=== PATIENT | male | born 1930 | race Caucasian/White ===

== ENCOUNTER 2016-10-17 13:09 | Emergency (ER) | payer MEDICARE, BC ==
[2016-10-17 13:45] LABS: Urine Bilirubin Negative (NEGATIVE); Urine Blood Negative /ul (NEGATIVE); Urine Ketone Negative (NEGATIVE); Urine Nitrite Negative (NEGATIVE); Urine Protein Negative (NEGATIVE); Urine Urobilinogen Normal (NORMAL)
[2016-10-17 14:02] LABS: Urine Appearance Clear; Urine Bacteria None Seen; Urine Color Yellow; Urine RBC None Seen /hpf (0-5); Urine WBC None Seen /hpf (0-5)
[2016-10-17 14:20] LABS: Hematocrit 44.9 % (42.0-52.0); Hemoglobin 15.1 gm/dL (13.5-18.0); Mean Cell Volume 91.6 fl (78-100); Mean Corpuscular Hemoglobin 30.8 pg (27-31); Mean Corpuscular Hgb Conc 33.6 g/dl (32-36); Mean Platelet Volume 9.5 fl (6.0-9.5); Neutrophil # 5.1 K/mm3 (1.3-6.0); Neutrophil % 69.2 % (42-75.0); Platelet Count 187 K/mm3 (150-450); Red Cell Distribution Width 13.1 % (11.5-14.0); White Blood Count 7.4 K/mm3 (4.0-10.5)
--- NOTE | 2016-10-17 14:22 | ERNOTE ---
Medical Problem HPI - Narrative Date of Service: 10/17/16 - General Chief Complaint: General Assessment Time Seen by Provider: 10/17/16 13:56 Source: patient Exam Limitations: no limitations - Immun/Allergies/Home Medications Immunizations: IMMUNIZATION HX History of Influenza Vaccine Yes Hx Pneumococcal Vaccination Yes Allergies/Adverse Reactions: Allergies doxycycline Allergy (Verified 10/17/16 13:22) Home Medications: HOME MEDICATIONS ALPRAZolam [Xanax] 0.25 mg PO DAILY PRN 10/17/16 [Last Taken Unknown] Acetaminophen [Tylenol] 500 mg PO HS 10/17/16 [Last Taken Unknown] Cranberry Extract [Ellura] 200 mg PO DAILY 10/17/16 [Last Taken Unknown] Cyanocobalamin (Vitamin B-12) [Vitamin B12] 1,000 mcg PO DAILY 10/17/16 [Last Taken Unknown] Gabapentin [Neurontin] 100 mg PO HS 10/17/16 [Last Taken Unknown] Garlic 200 mg PO DAILY 10/17/16 [Last Taken Unknown] Lisinopril [Zestril] 10 mg PO DAILY #20 tablet 10/17/16 [Last Taken Unknown] Omeprazole 60 mg PO DAILY 10/17/16 [Last Taken Unknown] Saw [place] Xtr/Zinc Picolin [Gnp Saw [place] 80 mg Capsule] 1 each PO DAILY 10/17/16 [Last Taken Unknown] Vitamin B Complex 1 each PO DAILY 10/17/16 [Last Taken Unknown] Vitamin E 400 unit PO DAILY 10/17/16 [Last Taken Unknown] - History of Present History Narrative: Pt. comes in with c/o dizziness with headache and elevated blood pressure intermittently. Pt. states that he has had this occur multiple times in the past but yesterdays episode was the worst episode that he has had. Pt. denies any chest pain, NVD, abdominal pain, shortness of breath but does state that he occasionally has white sputum and a cough randomly but he does not have those symptoms at this time. Pt. is currently undergoing care for newly diagnosed glaucoma. Review of Systems - Review of Systems Constitutional: Present: no symptoms reported. Absent: recent illness, fever, chills, weakness, fatigue EYE: Present: no symptoms reported. Absent: eye pain, double vision, vision changes ENT: Present: no symptoms reported Respiratory: Present: no symptoms reported. Absent: shortness of breath, cough , wheezing Cardiology: Present: no symptoms reported Gastrointestinal/Abdominal: Present: no symptoms reported. Absent: nausea, vomiting, diarrhea Genitourinary: Present: no symptoms reported Musculoskeletal: Present: no symptoms reported. Absent: back pain, joint pain Skin: Present: no symptoms reported Neurological: Present: headache, dizziness/light-headedness. Absent: numbness, tingling Endocrine: Present: no symptoms reported Hematologic/Lymphatic: Present: no symptoms reported All Other Systems: All systems neg except as marked - Patient's Past Medical History Patient History - Medical: Arthritis, GERD Patient History - Cancer: No Hx of Cancer Patient History - Surgical Procedures: No surgical history - Social History Living Situations: home Drug Use: none Physical Exam - Physical Exam General Appearance: Present: wd/wn, alert, no apparent distress Eye Exam: Normal inspection: bilateral, PERRL: bilateral, EOMI: bilateral Ears, Nose, Throat: Present: normal ENT inspection, hearing decreased, normal pharynx Neck: Present: normal inspection, nontender. Absent: lymphadenopathy (R), lymphadenopathy (L) Respiratory: Present: no respiratory distress, normal breath sounds, no accessory muscle use, chest nontender, lungs clear Cardiovascular/Chest: Present: regular rate, rhythm, no murmur, normal peripheral pulses Gastrointestinal/Abdominal: Present: normal bowel sounds, nontender, nondistended, soft, no organomegaly Back Exam: Present: normal inspection, normal range of motion, no CVA tenderness , no vertebral tenderness Extremity Exam: Present: normal inspection, non-tender, no edema, normal range of motion Neurological Exam: Present: alert, oriented, normal mood/affect, no motor/ sensory deficits, 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 Absent: facial droop, motor weakness, disoriented to person, disoriented to time, disoriented to place, disoriented to situation Skin Exam: Present: normal color, warm/dry. Absent: pallor, skin rash ED Progress - Date and Time Seen: Date and Time: 10/17/16 15:[address] Jackson and we feel that symptoms may be related to HTN and LVH will start pt. on Lisinopril 10mg and have pt. increase fluid intake and follow up with Dr Jackson in 2-3 days. - Results and Orders Patient's Lab Results:: I have reviewed the patient's lab results. - Vital Signs Patient's Vital Signs:: I have reviewed the patient's vital signs. Vital Signs: Vital Signs 10/17/16 13:17 Temperature 37.2 C Pulse Rate 65 Respiratory 12 Rate Blood Pressure 150/98 O2 Sat by Pulse 98 Oximetry - EKG EKG: LVH - increased from 2013, other - sinus rhythm EKG read: Interp. 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 Referrals: Luis Daniel Jackson DO [Primary Care Provider] - Prescriptions: Lisinopril [Zestril] 10 mg PO DAILY #20 tablet
[2016-10-17 14:40] LABS: Albumin * 3.8 gm/dl (3.4-5.0); BUN/Creatinine Ratio 12.8 (9.0-21.6); Bilirubin, Total 0.5 mg/dL (0.0-1.1); Calcium * 9.2 mg/dL (7.9-10.9); Carbon Dioxide 23.9 mmol/L (24-32.6); Potassium 3.9 mmol/L (3.4-4.6); Total Protein 6.8 gm/dL (6.2-8.2)
[2016-10-17 14:42] LABS: Troponin I 0.032 ng/ml (0.00-0.10)
[2016-10-17 15:51] VITALS: BP 146/89
== END 2016-10-17 15:51 | disposition home or self-care (01) ==
LOC: ER 13:09
DX: I11.9 Hypertensive heart disease without heart failure (principal); F41.1 Generalized anxiety disorder

== ENCOUNTER 2017-03-01 11:38 | Day surgery (SDC) | payer MEDICARE, BC ==
--- NOTE | 2017-03-01 12:32 | OR ---
Anesthesia Pre Procedure Eval Pre Procedure Evaluation: Last Vital Signs Temp 36.2 C L 03/01/17 11:15 Pulse 69 03/01/17 11:15 Resp 18 03/01/17 11:15 BP 138/78 03/01/17 11:15 Pulse Ox 99 03/01/17 11:15 O2 Oxygen Delivery Method Room Air PRE PROCEDURE EVALUATION:: DATE: 03/01/2017 TIME: 12:15 INDICATIONS: Spinal fluid collection to relieve increased intercranial pressure. Patient presents with gait instability. PAST MEDICAL HISTORY: No previous lumbar punctures. EXAM: Lungs clear and equal. Heart rate regular. Procedure risks and benefits were explained to and accepted by the patient. ASSESSMENT OF MEDICAL STATUS: No contraindication to lumbar puncture. PLANNED PROCEDURE : Lumbar puncture for spinal fluid draining to relieve hydrocephalus. Home Medications: HOME MEDICATIONS ALPRAZolam [Xanax] 0.25 mg PO DAILY PRN 10/17/16 [Last Taken Unknown] Acetaminophen [Tylenol] 500 mg PO PRN PRN 10/17/16 [Last Taken Unknown] Cranberry Fruit Extract [Ellura] 200 mg PO DAILY 10/17/16 [Last Taken Unknown] Gabapentin [Neurontin] 100 mg PO HS 10/17/16 [Last Taken Unknown] Garlic 200 mg PO DAILY 10/17/16 [Last Taken Unknown] Saw [place] Xtr/Zinc Picolin [Gnp Saw [place] 80 mg Capsule] 1 each PO DAILY 10/17/16 [Last Taken Unknown] Vitamin E 400 unit PO DAILY 10/17/16 [Last Taken Unknown] Aspirin [Aspirin Enteric Coated] 325 mg PO DAILY 02/28/17 [Last Taken Unknown] Cyanocobalamin [Vitamin B-12] 1,000 mcg PO DAILY 02/28/17 [Last Taken Unknown] Lisinopril [Zestril] 40 mg PO DAILY 02/28/17 [Last Taken Unknown] Pantoprazole Sodium [Protonix] 40 mg PO DAILY 02/28/17 [Last Taken Unknown] Pyridoxine HCl [Vitamin B-6] 50 mg PO DAILY 02/28/17 [Last Taken Unknown] Saw/Vit E/Sod [place]/Lyc/Beta/Pyg [Prostate Health Caplet] 1 each PO DAILY [Last Taken Unknown] Simethicone [Gas Relief] 125 mg PO TID 02/28/17 [Last Taken Unknown] Valerian Root 100 mg PO PRN PRN 02/28/17 [Last Taken Unknown]
--- NOTE | 2017-03-01 14:19 | OR ---
Anesthesia Procedure Note - Anesthesia Procedure Note Narrative: Vital Signs - Last Taken Temp 36.2 C L 03/01/17 14:05 Pulse 66 03/01/17 14:05 Resp 16 03/01/17 14:05 BP 143/94 03/01/17 14:05 Pulse Ox 96 03/01/17 14:05 O2 Oxygen Delivery Method Room Air 03/01/17 14:16 ANESTHESIA PROCEDURE NOTE Date of procedure: 03/01/2017. Time of procedure: 12:30. Performed by: Cipriano Mccain CRNA Telephone Cleaner: Rj Syed RN . Preprocedure diagnosis: Instability of gait. Hydrocephalus. Post procedure diagnosis: Same. Procedure: Lumbar puncture Indications: Instability of gait. Increased intracranial pressure.. Findings: Patient brought to operating room #3 and placed in a sitting position. Back was prepped with DuraPrep. Dura was punctured at the L34 interspace. Attempted dural puncture at L2-3 without success. 22-gauge Quincke spinal needle was used. A total of 50 mL of CSF was obtained. Spinal needle was removed intact. EBL: Minimal. Fluids: N/A. Specimen: N/A. Post procedure condition: The patient tolerated the procedure well. No complications were noted. Thank you for this consultation Cipriano Mccain CRNA
[2017-03-01 14:34] VITALS: BP 172/85
--- OUTSIDE RECORDS SUMMARY | 2017-03-05 11:43 | XMS REPORT | Continuity of Care Document ---
:1930 Author Organization [facility] ([facility]) Address [address] [place] [address] Phone [phone] Care Team Providers Name Role Phone Luis Daniel Jackson Primary Care Provider [phone] Source Comments This disclosure is being made pursuant to the Care Everywhere program, applicable federal and state laws, and may not contain all informaitonavailable regarding this patient.[facility] ([facility]) Active Allergies and Adverse Reactions Allergen Noted Date Severity Reactions Comments Other [place]-3s 04/02/2012 Nausea & Vomiting Unable to recall the name of the antibiotic he is allergic to Current Medications Prescription Sig. Disp. Refills Start Date End Date Status OTHER Unknown medication Active for gout?? omeprazole 20 mg enteric Take 20 mg by mouth Active coated capsule daily. ALPRAZolam 0.25 mg Take 0.25 mg by Active tablet mouth at bedtime as needed. gabapentin 100 mg Take 100 mg by mouth Active capsule 3 times daily. cyanocobalamin (VITAMIN Take 500 mcg by Active B-12) 500 mcg tablet mouth daily. vitamin E 400 unit Take 400 Units by Active capsule mouth daily. cranberry 500 mg capsule Take 500 mg by mouth Active daily. OTHER prostametto Active Garlic 1 mg cap Active OTHER valerin natural Active relaxant aspirin 325 mg tablet Take 325 mg by mouth Active daily. 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
== END 2017-03-01 11:39 | disposition home or self-care (01) ==
LOC: AMB 11:38
PROVIDERS: ATTEND Family Medicine
PROC: 009U3ZX Drainage of Spinal Canal, Percutaneous Approach, Diagnostic (ICD-10-PCS; principal; 2017-03-01 12:30)
DX: G91.9 Hydrocephalus, unspecified (principal); R26.89 Other abnormalities of gait and mobility; Z68.21 Body mass index [BMI] 21.0-21.9, adult

== ENCOUNTER 2017-05-14 11:22 | Day surgery (SDC) | payer MEDICARE, BC ==
--- NOTE | 2017-05-14 12:06 | OR ---
Anesthesia Pre Procedure Eval Date of Service: 05/14/17 Pre Procedure Evaluation: Last Vital Signs Temp 36.6 C 05/14/17 11:34 Pulse 78 05/14/17 11:34 Resp 16 05/14/17 11:34 BP 151/90 05/14/17 11:34 Pulse Ox 97 05/14/17 11:34 O2 Oxygen Delivery Method Room Air Anesthesia Pre Procedure Evaluation DATE: 05/14/2017. TIME: 1150. 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 He had a lumbar puncture back in February 2017 and presents today with same symptoms. EXAM: Pain is 0/10 on pain scale at present. ASSESSMENT OF MEDICAL STATUS: O.K. to proceed with lumbar puncture. PLANNED PROCEDURE: Lumbar puncture. Home Medications: HOME MEDICATIONS ALPRAZolam [Xanax] 0.25 mg PO DAILY PRN 10/17/16 [Last Taken Unknown] Acetaminophen [Tylenol] 500 mg PO Q4H PRN 10/17/16 [Last Taken Unknown] Cranberry Fruit Extract [Ellura] 200 mg PO DAILY 10/17/16 [Last Taken Unknown] Gabapentin [Neurontin] 100 mg PO HS 10/17/16 [Last Taken Unknown] Garlic 200 mg PO DAILY 10/17/16 [Last Taken Unknown] Saw [place] Xtr/Zinc Picolin [Gnp Saw [place] 80 mg Capsule] 1 each PO DAILY 10/17/16 [Last Taken Unknown] Vitamin E 400 unit PO DAILY 10/17/16 [Last Taken Unknown] Aspirin [Aspirin Enteric Coated] 325 mg PO DAILY 02/28/17 [Last Taken Unknown] Cyanocobalamin [Vitamin B-12] 1,000 mcg PO DAILY 02/28/17 [Last Taken Unknown] Lisinopril [Zestril] 40 mg PO DAILY 02/28/17 [Last Taken Unknown] Pantoprazole Sodium [Protonix] 40 mg PO DAILY 02/28/17 [Last Taken Unknown] Pyridoxine HCl [Vitamin B-6] 50 mg PO DAILY 02/28/17 [Last Taken Unknown] Saw/Vit E/Sod [place]avin[place]/Lyc/Beta/Pyg [Prostate Health Caplet] 1 each PO DAILY [Last Taken Unknown] Simethicone [Gas Relief] 125 mg PO TID 02/28/17 [Last Taken Unknown] Valerian Root 100 mg PO PRN PRN 02/28/17 [Last Taken Unknown]
--- NOTE | 2017-05-14 13:14 | OR ---
Anesthesia Procedure Note - Anesthesia Procedure Note Date of Service: 05/14/17 Narrative: Vital Signs - Last Taken Temp 36.4 C L 05/14/17 13:08 Pulse 71 05/14/17 13:08 Resp 16 05/14/17 13:08 BP 180/102 05/14/17 13:08 Pulse Ox 6 L 05/14/17 13:08 O2 Oxygen Delivery Method Room Air 05/14/17 13:11 ANESTHESIA PROCEDURE NOTE Date of Procedure: 05/14/2017. Time of procedure: 1205. Performed by: Antony Gastelum CRNA Airplane Pilot Photogrammetry: None. Preprocedure diagnosis: Hydrocephalus and ataxia. Post procedure diagnosis: Same. Procedure: Lumbar Puncture. Indications: This 87-year-old male who is been experiencing difficulty ambulating he has had a lumbar puncture back in February 2017 with relief of his symptoms. Findings: Opening pressure = 13.5 mmHg Closing pressure = 6 mmHg. Details of the procedure: After informed consent was obtained the patient was placed in the right lateral decubitus position. Duraprep was applied to the patients back. The patient was then draped in a sterile fasion. Lidocaine 1% was infiltrated to the skin and subcutaneous tissues at the intended target site. The subarachnoid scace was identified at the level of the L5-S1 interspace using a 22-gauge quickie spinal needle. Free flow of CSF was noted. Pressure measurements were obtained.. Four specimens were drawn and sent to lab. Total of 37 mL of cerebral spinal fluid was removed. The procedure was stopped when closing pressure was 6 mmHg. The spinal needle was removed intact. A Band-Aid was applied to the patient's back. EBL: Minimal. Fluids: N/A. Specimen: N/A. Post procedure condition: The patient tolerated the procedure well. No complications were noted. Thank you for this consultation. Antony Gastelum CRNA
[2017-05-14 13:39] VITALS: BP 191/96
== END 2017-05-14 11:23 | disposition home or self-care (01) ==
LOC: AMB 11:22
PROVIDERS: ATTEND Family Medicine
PROC: 009U3ZX Drainage of Spinal Canal, Percutaneous Approach, Diagnostic (ICD-10-PCS; principal; 2017-05-14 12:00)
DX: G91.9 Hydrocephalus, unspecified (principal); R27.0 Ataxia, unspecified; Z68.21 Body mass index [BMI] 21.0-21.9, adult

== ENCOUNTER 2017-07-13 05:28 | Emergency (ER) | payer MEDICARE, BC ==
--- NOTE | 2017-07-13 05:50 | ERNOTE ---
Neuro HPI ER Record Presenting Symptoms: confusion Time Seen by Provider: 07/13/17 05:32 Source: patient, family, RN notes reviewed Exam Limitations: clinical condition, dementia Immunizations: IMMUNIZATION HX Immunizations Up to Date Yes History of Influenza Vaccine No Hx Pneumococcal Vaccination Yes Allergies/Adverse Reactions: Allergies Allergy/AdvReac Type Severity Reaction Status Date / Time doxycycline AdvReac Mild gi upset Verified 07/13/17 05:39 milk AdvReac Mild gi upset Verified 07/13/17 05:39 Home Medications: HOME MEDICATIONS ALPRAZolam [Xanax] 0.25 mg PO DAILY PRN 10/17/16 [Last Taken Unknown] Acetaminophen [Tylenol] 500 mg PO Q4H PRN 10/17/16 [Last Taken Unknown] Cranberry Fruit Extract [Ellura] 200 mg PO DAILY 10/17/16 [Last Taken Unknown] Gabapentin [Neurontin] 100 mg PO HS 10/17/16 [Last Taken Unknown] Garlic 200 mg PO DAILY 10/17/16 [Last Taken Unknown] Saw [place] Xtr/Zinc Picolin [Gnp Saw [place] 80 mg Capsule] 1 each PO DAILY 10/17/16 [Last Taken Unknown] Vitamin E 400 unit PO DAILY 10/17/16 [Last Taken Unknown] Aspirin [Aspirin Enteric Coated] 325 mg PO DAILY 02/28/17 [Last Taken Unknown] Cyanocobalamin [Vitamin B-12] 1,000 mcg PO DAILY 02/28/17 [Last Taken Unknown] Lisinopril [Zestril] 40 mg PO DAILY 02/28/17 [Last Taken Unknown] Pantoprazole Sodium [Protonix] 40 mg PO DAILY 02/28/17 [Last Taken Unknown] Pyridoxine HCl [Vitamin B-6] 50 mg PO DAILY 02/28/17 [Last Taken Unknown] Saw/Vit E/Sod [place]/Lyc/Beta/Pyg [Prostate Health Caplet] 1 each PO DAILY [Last Taken Unknown] Simethicone [Gas Relief] 125 mg PO TID 02/28/17 [Last Taken Unknown] Valerian Root 100 mg PO PRN PRN 02/28/17 [Last Taken Unknown] - History of Present Illness Narrative: Patient has been having problems with worsening dementia, just saw Dr. Salazar recently. He has multiple tests coming up. Review of Systems - Review of Systems Constitutional: Absent: recent illness, fever, chills EYE: Present: no symptoms reported ENT: Absent: ear pain, sore throat Respiratory: Absent: shortness of breath, cough Cardiology: Absent: chest pain Gastrointestinal/Abdominal: Absent: nausea, vomiting, diarrhea Genitourinary: Present: no symptoms reported Musculoskeletal: Present: no symptoms reported Skin: Present: no symptoms reported Neurological: Present: anxiety, pre-existing deficit Endocrine: Present: no symptoms reported Hematologic/Lymphatic: Present: no symptoms reported - Patient's Past Medical History Patient History - Medical: Arthritis, GERD Patient History - Cardiac/Respiratory: Hypertension, TIA Patient History - Cancer: No Hx of Cancer Patient History - Surgical Procedures: No surgical history Patient History - Other: None - Social History Living Situations: home Psych History: No pertinent hx Smoking Status: Never smoker Alcohol Use: none Drug Use: none - Immunizations Immunizations Up to Date: Yes Hx Pneumococcal Vaccination: Yes History of Influenza Vaccine: No Physical Exam - Physical Exam General Appearance: Present: wd/wn, mild distress, anxious Head Exam: Present: normal inspection, no evidence of injury Eye Exam: Normal inspection: bilateral, PERRL: bilateral, EOMI: bilateral Ears, Nose, Throat: Present: normal ENT inspection, normal pharynx Neck: Present: normal inspection, nontender Respiratory: Present: no respiratory distress, normal breath sounds, no accessory muscle use, chest nontender, lungs clear Cardiovascular/Chest: Present: regular rate, rhythm, no murmur Gastrointestinal/Abdominal: Present: normal bowel sounds, nontender, nondistended, soft Back Exam: Present: normal inspection, normal range of motion Extremity Exam: Present: normal inspection, non-tender, normal range of motion, no edema Neurological Exam: Present: alert, no motor/sensory deficits, folding machine feeder II-XII nml as tested, disoriented to time, disoriented to place, disoriented to situation. Absent: oriented Skin Exam: Present: normal color, warm/dry [place] Coma Scale - Assess Eye Opening: Spontaneous Motor: Obeys Commands Verbal: Confused - Total Coma Scale Total: 14 ED Progress - Results and Orders Patient's Lab Results:: I have reviewed the patient's lab results. - Vital Signs Patient's Vital Signs:: I have reviewed the patient's vital signs. Vital Signs: Vital Signs 07/13/17 07/13/17 05:34 05:43 Temperature 36.8 C Pulse Rate 66 66 Respiratory 18 18 Rate Blood Pressure 193/99 159/97 O2 Sat by Pulse 98 97 Oximetry - X-Ray X-Ray #1 X-Ray: chest Interpretation: Interp. by me X-ray Comments: no cardiomegaly, no infiltrate noted - CT/Ultrasound CT/Ultrasound Narrative: CT Head: no acute intracranial pathology - no mass, hemorrhage or evidence for acute infarction. 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 Culcal widening and parenchymal volume loss commensurate ventricular caliber and extraaxial space enlargement appropriate for the patient 's age. Atheromatous disease present. - Progress/Reassessment Chief Complaint: Altered Mental Status Plan - Plan Plan: Discussed labs and radiological procedures with patient, spouse and son, he is doing better, realizes that he has been for 60 years. Departure Clinical Impression: Dementia Qualifiers: Dementia type: Alzheimer's disease Alzheimer's disease onset: late-onset Dementia behavioral disturbance: without behavioral disturbance Qualified Code(s ): G30.1 - Alzheimer's disease with late onset - Departure Disposition: Home self-care Condition: Good Instructions: Confusion, Cerebral Atrophy, Alzheimer Disease Referrals: Trent Salazar MD [Consulting Physician] - (Call Saturday morning to discuss this worsening of his dementia, see if follow up sooner would be advised.) Luis Daniel Jackson DO [Primary Care Provider] - (3-5 days)
[2017-07-13 06:37] LABS: Hematocrit 41.1 % (42.0-52.0); Hemoglobin 13.7 gm/dL (13.5-18.0); Mean Cell Volume 95.4 fl (78-100); Mean Corpuscular Hemoglobin 31.8 pg (27-31); Mean Corpuscular Hgb Conc 33.3 g/dl (32-36); Neutrophil # 3.2 K/mm3 (1.3-6.0); Neutrophil % 61.7 % (42-75.0); Platelet Count 172 K/mm3 (150-450); Red Blood Count 4.31 M/mm3 (4.7-6.0); White Blood Count 5.2 K/mm3 (4.0-10.5)
[2017-07-13 06:58] LABS: Albumin * 3.5 gm/dl (3.4-5.0); Bilirubin, Total 0.6 mg/dL (0.0-1.1); Ca. Corrected For Albumin 8.8 mg/dL (8.4-10.2); Calcium * 8.7 mg/dL (7.9-10.9); Carbon Dioxide 26.5 mmol/L (24-32.6); Potassium 3.5 mmol/L (3.4-4.6); Total Protein 6.6 gm/dL (6.2-8.2)
[2017-07-13 07:03] LABS: Troponin I 0.021 ng/ml (0.00-0.10)
[2017-07-13 07:18] LABS: Urine Bilirubin Negative (NEGATIVE); Urine Blood Negative /ul (NEGATIVE); Urine Ketone Negative (NEGATIVE); Urine Nitrite Negative (NEGATIVE); Urine Protein Negative (NEGATIVE); Urine Specific Gravity 1.015 SP.GR. (1.005-1.030); Urine Urobilinogen Normal (NORMAL)
[2017-07-13 07:27] LABS: Urine Appearance Clear; Urine Color Yellow; Urine RBC None Seen /hpf (0-5); Urine WBC None Seen /hpf (0-5)
[2017-07-13 07:28] LABS: Urine Amorphous Sediment Few - 1+ (NONE-FEW); Urine Bacteria None Seen
[2017-07-13 08:33] VITALS: BP 172/88
== END 2017-07-13 08:31 | disposition home or self-care (01) ==
LOC: ER 05:28
DX: G30.1 Alzheimer's disease with late onset (principal); M19.90 Unspecified osteoarthritis, unspecified site; K21.9 Gastro-esophageal reflux disease without esophagitis; I10 Essential (primary) hypertension

== ENCOUNTER 2017-10-18 12:21 | Inpatient (IN) | payer MEDICARE, BC ==
--- NOTE | 2017-10-18 13:13 | ERNOTE ---
Medical Problem HPI - Narrative Date of Service: 10/18/17 - General Chief Complaint: General Assessment Time Seen by Provider: 10/18/17 13:03 Source: patient, family, RN notes reviewed, old records Exam Limitations: dementia - Immun/Allergies/Home Medications Immunizations: IMMUNIZATION HX Immunizations Up to Date Yes History of Influenza Vaccine No Hx Pneumococcal Vaccination No Allergies/Adverse Reactions: Allergies doxycycline Adverse Reaction (Mild, Verified 10/18/17 12:52) gi upset milk Adverse Reaction (Mild, Verified 10/18/17 12:52) gi upset Home Medications: HOME MEDICATIONS ALPRAZolam [Xanax] 0.25 mg PO DAILY PRN 10/17/16 [Last Taken Unknown] Acetaminophen [Tylenol] 500 mg PO Q4H PRN 10/17/16 [Last Taken Unknown] Cranberry Fruit Extract [Ellura] 200 mg PO DAILY 10/17/16 [Last Taken Unknown] Gabapentin [Neurontin] 100 mg PO HS 10/17/16 [Last Taken Unknown] Garlic 200 mg PO DAILY 10/17/16 [Last Taken Unknown] Saw [place] Xtr/Zinc Picolin [Gnp Saw [place] 80 mg Capsule] 1 each PO DAILY 10/17/16 [Last Taken Unknown] Vitamin E 400 unit PO DAILY 10/17/16 [Last Taken Unknown] Aspirin [Aspirin Enteric Coated] 325 mg PO DAILY 02/28/17 [Last Taken Unknown] Cyanocobalamin [Vitamin B-12] 1,000 mcg PO DAILY 02/28/17 [Last Taken Unknown] Lisinopril [Zestril] 40 mg PO DAILY 02/28/17 [Last Taken Unknown] Pantoprazole Sodium [Protonix] 40 mg PO DAILY 02/28/17 [Last Taken Unknown] Pyridoxine HCl [Vitamin B-6] 50 mg PO DAILY 02/28/17 [Last Taken Unknown] Saw/Vit E/Sod Lavinia/Lyc/Beta/Pyg [Prostate Health Caplet] 1 each PO DAILY [Last Taken Unknown] Simethicone [Gas Relief] 125 mg PO TID 02/28/17 [Last Taken Unknown] Valerian Root 100 mg PO PRN PRN 02/28/17 [Last Taken Unknown] - History of Present History Narrative: Olaf is a 87 year old male who initially presented to the walk-in clinic with his for a URI. He was found to be cyanotic, weak and confused so he was sent to the ED for evaluation. His reports that he has been ill for approximately a week. This began around the same time that he had a fall while shoveling snow. She reports that he has had a cough and has been very weak. He denies injuring himself during the fall, but he does not seem to be a reliable historian. Review of Systems - Review of Systems Constitutional: Present: fatigue, malaise, decreased activity level EYE: Present: no symptoms reported ENT: Present: no symptoms reported Respiratory: Present: shortness of breath, cough. Absent: orthopnea Cardiology: Present: edema. Absent: chest pain, palpitations, syncope Gastrointestinal/Abdominal: Present: eating less, drinking less. Absent: vomiting, diarrhea Genitourinary: Present: no symptoms reported Musculoskeletal: Present: muscle pain - both legs. Absent: joint pain, joint swelling Skin: Present: change in color. Absent: rash, lesions, lumps Neurological: Present: weakness. Absent: headache, dizziness/light-headedness Endocrine: Present: no symptoms reported Hematologic/Lymphatic: Present: easy bruising, easy bleeding Psych: Present: no symptoms reported - Patient's Past Medical History Patient History - Medical: Arthritis, GERD, Other - Normal pressure hydrocephalus Patient History - Cardiac/Respiratory: Hypertension, TIA Patient History - Cancer: No Hx of Cancer Patient History - Surgical Procedures: Colonoscopy, Hernia Repair, Orthopedic Patient History - Other: None - Social History Living Situations: spouse Abuse History: No History of abuse Psych History: No pertinent hx Smoking Status: Never smoker Have you smoked in the past 12 months: No Do you dip or chew tobacco: No Alcohol Use: occasionally Drug Use: none - Immunizations Immunizations Up to Date: Yes Hx Pneumococcal Vaccination: No History of Influenza Vaccine: No Physical Exam - Physical Exam General Appearance: Present: wd/wn, alert, other - In no acute distress but appears to not feel well, pleasant, well dressed/groomed Head Exam: Present: normal inspection, no evidence of injury Eye Exam: Normal inspection: bilateral Neck: Present: normal inspection, nontender, supple Respiratory: Present: no respiratory distress, no accessory muscle use, lungs clear, decreased breath sounds Cardiovascular/Chest: Present: tachycardia, irregularly irregular Peripheral Pulses: N=norm/S=strong/W=weak/B=bound/A=absent: Dorsalis-pedis (R): Weak, Dorsalis-pedis (L): Weak Gastrointestinal/Abdominal: Present: nontender, nondistended, soft Extremity Exam: Present: normal range of motion, pedal edema Neurological Exam: Present: alert, normal mood/affect, no motor/sensory deficits. Absent: oriented - mild confusion intermittently Skin Exam: Present: cool/dry, cyanosis, other - nail beds dusky ED Progress - Results and Orders Patient's Lab Results:: I have reviewed the patient's lab results. - Vital Signs Patient's Vital Signs:: I have reviewed the patient's vital signs. Vital Signs: Vital Signs 10/18/17 12:42 Temperature 35.6 C L Pulse Rate 103 H Respiratory 16 Rate Blood Pressure 93/53 - EKG EKG: atrial fibrillation - RVR EKG read: Reviewed by me - X-Ray X-Ray #1 X-Ray: chest Interpretation: Reviewed by me X-ray Comments: Chest Single View *: Hypoinflated lungs. Bilateral basilar retrocardiac opacities suggestive of atelectasis versus questionable infiltrates. Increased vascular and peripheral linear lung markings are present. No definable pneumothorax. Slightly blunted appearance of the costophrenic angle suggestive of trace bilateral pleural effusions. Moderate cardiomegaly, stable. Vascular calcifications noted overlying the tortuous aorta, stable. Trachea is in normal position given patient positioning. Osseous structures are grossly intact. IMPRESSION: 1. Pulmonary vascular congestion/interstitial edema suggested. 2. Stable cardiomegaly. 3. Trace bilateral pleural effusions. 4. Correlate clinically for congestive heart failure versus volume overload. 5. Bibasilar opacities most likely atelectasis, but consider pneumonia. Electronically signed by Jonathan Manzanares - Progress/Reassessment Chief Complaint: General Assessment Progress:: Improved Progress Note-Subjective: 10/18/17 14:37 SpO2 is now 96 to 97 on room air, heart rate remains 120 to 130's. Patient is receiving a 500 ml fluid bolus and his color appears a little better. His lactic acid is elevated at 3 and his renal function that is usually normal is now significantly impaired, however, his BNP is 6900 with his new onset A fib. His chest xray also shows mild pulmonary vascular congestion and interstitial edema, along with bibasilar consolidation consistent with pneumonia. He will receive IV Rocephin and po Zithromax. 10/18/17 15:24 Dr. Jackson here to see patient. HR remains in 120's. Patient to receive IV metoprolol 5mg. UA and repeat lactic acid are pending. Patient will be admitted to observation status on telemetry. Departure Clinical Impression: New onset atrial fibrillation, Acute kidney injury Pneumonia Qualifiers: Pneumonia type: due to unspecified organism Laterality: bilateral Lung location : lower lobe of lung Qualified Code(s): J18.9 - Pneumonia, unspecified organism CHF (congestive heart failure) Qualifiers: Congestive heart failure type: unspecified Congestive heart failure chronicity : acute Qualified Code(s): I50.9 - Heart failure, unspecified - Departure Disposition: [facility] Condition: Fair Referrals: Luis Daniel Jackson DO [Primary Care Provider] -
[2017-10-18 13:33] LABS: Hematocrit 47.5 % (42.0-52.0); Hemoglobin 15.6 gm/dL (13.5-18.0); Mean Cell Volume 92.1 fl (78-100); Mean Corpuscular Hemoglobin 30.2 pg (27-31); Mean Corpuscular Hgb Conc 32.8 g/dl (32-36); Mean Platelet Volume 11.4 fl (6.0-9.5); Neutrophil # 6.3 K/mm3 (1.3-6.0); Neutrophil % 75.1 % (42-75.0); Platelet Count 181 K/mm3 (150-450); Red Blood Count 5.16 M/mm3 (4.7-6.0); Red Cell Distribution Width 14.3 % (11.5-14.0); White Blood Count 8.3 K/mm3 (4.0-10.5)
[2017-10-18 13:51] LABS: Prothrombin Time (Patient) 15.4 Seconds (9.0-11.0)
[2017-10-18 13:52] LABS: INR 1.53 INR (0.90-1.10); Partial Thrombolplastin Time 27.1 Seconds (24-32)
[2017-10-18] MEDS ORDERED: NORMAL SALINE 1,000 ML IV ONE (13:55)
[2017-10-18 13:57] LABS: Albumin * 3.5 gm/dl (3.4-5.0); Anion Gap 14.4 mmol/L (6.8-13.8); Ca. Corrected For Albumin 9.2 mg/dL (8.4-10.2); Calcium * 9.1 mg/dL (7.9-10.9); Carbon Dioxide 29.8 mmol/L (24-32.6); Potassium 4.2 mmol/L (3.4-4.6); TSH * 3.067 uIU/mL (0.358-3.74); Total Protein 6.7 gm/dL (6.2-8.2); Troponin I 0.074 ng/ml (0.00-0.10)
[2017-10-18] MEDS ORDERED: AZITHROMYCIN 250 MG TABLET PO ONE (14:44)
[2017-10-18] MEDS ORDERED: METOPROLOL TARTRATE 1 MG/ML AMPUL IV ONE ×2 (15:16→15:41)
[2017-10-18] MEDS ORDERED: AZITHROMYCIN 250 MG TABLET ONE (15:41)
[2017-10-18 15:45] LABS: Urine Bilirubin Negative (NEGATIVE); Urine Blood 25 /ul (NEGATIVE); Urine Ketone Negative (NEGATIVE); Urine Nitrite Negative (NEGATIVE); Urine Protein 30 mg/dL (NEGATIVE); Urine Specific Gravity >=1.030 SP.GR. (1.005-1.030); Urine Urobilinogen Normal (NORMAL)
[2017-10-18 15:54] LABS: Urine Appearance Clear; Urine Bacteria None Seen; Urine Color Dark Yellow; Urine Hyaline Cast 0-5 /LPF; Urine RBC 0-5 /hpf (0-5); Urine WBC None Seen /hpf (0-5)
[2017-10-18] MEDS ORDERED: FUROSEMIDE 10 MG/ML VIAL IV ONE ×2 (16:12→22:20)
[2017-10-18] MEDS: ENOXAPARIN SODIUM 40 MG/0.4 ML SYRG SC SCH (16:37)
[2017-10-18] MEDS: METOPROLOL TARTRATE 25 MG TABLET PO SCH ×2 (16:38→23:37)
[2017-10-18] MEDS ORDERED: FLU VACC QS2017-18(6MOS UP)/PF 60 MCG/0.5 ML SYRINGE IM ONE (17:10)
--- NOTE | 2017-10-18 23:11 | HP ---
Chief Complaint - Chief Complaint Date of Service: 10/18/17 Time of Service: 17:00 Chief Complaint: Shortness of breath, cough History of Present Illness: Olaf is an 87 yo male that patient and family reports has been having cough and shortness of breath and worsening weakness over the last week. He has been getting confused, mostly at night. He has been diagnosed with alzhiemers dementia, although he is very functional. His reports that he has been having hallucinations at night and has been a little confused. - Patient's Past Medical History Patient History - Medical: Alzheimer's Disease, Arthritis, GERD Patient History - Cardiac/Respiratory: Hypertension, Hyperlipidemia, TIA Patient History - Cancer: No Hx of Cancer Patient History - Surgical Procedures: Colonoscopy, Hernia Repair, Orthopedic Patient History - Other: None - Family History Father Family History - Medical: , History Unknown Family History - Cardiac/Respiratory: History Unknown Family History - Cancer: No pertinent family hx Mother Family History - Medical: Family History - Cardiac/Respiratory: History Unknown Family History - Cancer: Liver - Social History Living Situations: spouse Abuse History: No History of abuse Psych History: No pertinent hx Smoking Status: Never smoker Have you smoked in the past 12 months: No Do you dip or chew tobacco: No Patient requests Smoking Cessation Consult: No Initiate information on Smoking Cessation: No Alcohol Use: occasionally Drug Use: none - Immunizations Immunizations Up to Date: Yes Hx Pneumococcal Vaccination: No History of Influenza Vaccine: No Review Of Systems (GEN) - Review of Systems Generalized/Overall Review: Present: Weakness, Chills, Fever EENTM: Present: No Symptoms Reported Respiratory: Present: Cough, Shortness of Breath Cardiac: Present: No Symptoms Reported Abdominal: Present: No Symptoms Reported Genitourinary: Present: No Symptoms Reported Musculoskeletal: Present: No Symptoms Reported Neurological: Present: Other - Confusion, hallucinations Skin: Present: No Symptoms Reported Endocrine: Present: No Symptoms Reported Immunizations: IMMUNIZATION HX Immunizations Up to Date Yes History of Influenza Vaccine No Hx Pneumococcal Vaccination No Allergies/Adverse Reactions: Allergies Allergy/AdvReac Type Severity Reaction Status Date / Time doxycycline AdvReac Mild gi upset Verified 10/18/17 17:54 milk AdvReac Mild gi upset Verified 10/18/17 17:54 Home Medications: HOME MEDICATIONS Lisinopril [Zestril] 40 mg PO DAILY 02/28/17 [Last Taken 10/18/17 08:00] Pantoprazole Sodium [Protonix] 40 mg PO DAILY 02/28/17 [Last Taken 10/18/17 08: 00] Acetaminophen 500 mg PO PRN PRN 10/19/17 [Last Taken Unknown] Alprazolam [Xanax] 0.25 mg PO PRN PRN 10/19/17 [Last Taken Unknown] Aspirin 325 mg PO DAILY 10/19/17 [Last Taken Unknown] Donepezil HCl [Aricept] 10 mg PO DAILY 10/19/17 [Last Taken Unknown] Saw [place] 80 mg PO DAILY 10/19/17 [Last Taken Unknown] Simethicone 125 mg PO TID 10/19/17 [Last Taken Unknown] Valerian Root Extract [Valerian] 150 mg PO PRN PRN 10/19/17 [Last Taken Unknown] Exam - Exam Vital Signs: Vital Signs - Last Taken Temp 36.7 C 10/18/17 22:00 Pulse 118 H 10/18/17 22:00 Resp 32 H 10/18/17 22:00 BP 118/77 10/18/17 22:00 Pulse Ox 90 10/18/17 22:00 Constitutional: Present: Alert, Oriented x3, Cooperative ENT Exam: Present: normal ENT inspection Eye Exam: bilateral eye: normal inspection Respiratory: Present: respiratory distress - mild distress with tachypnea, crackles Cardiovascular/Chest: Present: tachycardia, irregularly irregular Abdomen: Present: Normal bowel sounds, soft, nontender, nondistended Skin Exam: Present: normal color, warm/dry, no cyanosis Lymphatic: Present: no adenopathy Neurologic: Present: alert, normal mood/affect, oriented x 3 Eye contact: Present: cooperative, good eye contact, normal speech Thoughts: Present: normal thought pattern, no apparent hallucination Diagnostic Studies: Abnormal Lab Results 10/18/17 10/18/17 Range/Units 15:36 16:09 Lactic Acid, Venous 2.8 H* (0.4-1.9) mmol/L Urine Protein 30 H (NEGATIVE) mg/dL Urine Blood 25 H (NEGATIVE) /ul Hyaline Casts 0-5 H (NONE) /LPF Laboratory Results WBC 8.3 K/mm3 (4.0-10.5) 10/18/17 13:29 RBC 5.16 M/mm3 (4.7-6.0) 10/18/17 13: Hgb 15.6 gm/dL (13.5-18.0) 10/18/17 13: Hct 47.5 % (42.0-52.0) 10/18/17 13: MCV 92.1 fl (78-100) 10/18/17 13: MCH 30.2 pg (27-31) 10/18/17 13: MCHC 32.8 g/dl (32-36) 10/18/17 13: RDW 14.3 % (11.5-14.0) H 10/18/17 13: Plt Count 181 K/mm3 (150-450) 10/18/17 13: MPV 11.4 fl (6.0-9.5) H 10/18/17 13: Immature Gran % (Auto) 0.40 % (0.001-0.429) 10/18/17 13: Immature Gran # (Auto) 0.03 K/mm3 (0.000-0.0310) 10/18/17 13:29 Neutrophils % 75.1 % (42-75.0) H 10/18/17 13: Lymphocytes % 12.6 % (20-51) L 10/18/17 13: Monocytes % 10.9 % (0.0-9) H 10/18/17 13: Eosinophils % 0.4 % (0.0-3.0) 10/18/17 13: Basophils % 0.6 % (0.0-1.0) 10/18/17 13: Nucleated RBC % 0.0 k/mm3 (0-1) 10/18/17 13:29 Neutrophils # 6.3 K/mm3 (1.3-6.0) H 10/18/17 13: Lymphocytes # 1.1 k/mm3 (1.5-3.5) L 10/18/17 13: Monocytes # 0.9 k/mm3 (0.0-1.0) 10/18/17 13: Eosinophils # 0.0 k/mm3 (0.0-0.7) 10/18/17 13: Absolute Basophils 0.1 k/mm3 (0.0-0.1) 10/18/17 13:29 PT 15.4 Seconds (9.0-11.0) H 10/18/17 13:29 INR (Anticoag Therapy) 1.53 INR (0.90-1.10) H 10/18/17 13:29 PTT ([place]ard) 27.1 Seconds (24-32) 10/18/17 13:29 pCO2 26.9 mmHg (35.0-48.0) L 10/18/17 13:34 pO2 90.7 mmHg (83.0-108.0) 10/18/17 13:34 HCO3 21.5 mmol/L (21.0-28.0) 10/18/17 13:34 Total CO2 22.3 mmol/L (19.0-24.0) 10/18/17 13:34 Base Excess 0.3 mmol/L (-2.0-3.0) 10/18/17 13:34 ABG pH 7.52 (7.35-7.45) H 10/18/17 13:34 ABG O2 Sat (Measured) 97.7 % (94.0-98.0) 10/18/17 13:34 Sodium 142 mmol/L (132-142) 10/18/17 13:29 Plasma Sodium 142 mmol/L (130-142) 10/18/17 13:29 Potassium 4.2 mmol/L (3.4-4.6) 10/18/17 13:29 Chloride 102 mmol/L (97-106) 10/18/17 13:29 Carbon Dioxide 29.8 mmol/L (24-32.6) 10/18/17 13:29 Anion Gap 14.4 mmol/L (6.8-13.8) H 10/18/17 13:29 BUN 50 mg/dL (6-23) H D 10/18/17 13:29 Creatinine 2.00 mg/dL (0.4-1.4) H D 10/18/17 13:29 Est GFR (Non-Af Amer) 34 mL/min (60-130) L D 10/18/17 13:29 BUN/Creatinine Ratio 25.0 (9.0-21.6) H 10/18/17 13:29 Random Glucose 107 mg/dL (70-110) 10/18/17 13:29 Lactic Acid, Venous 2.8 mmol/L (0.4-1.9) H* 10/18/17 16:09 Calcium 9.1 mg/dL (7.9-10.9) 10/18/17 13:29 Calcium Adj for Albumin 9.2 mg/dL (8.4-10.2) 10/18/17 13:29 Total Bilirubin 1.0 mg/dL (0.0-1.1) 10/18/17 13:29 AST 54 U/L (0-48) H 10/18/17 13:29 ALT 61 U/L (19-67) 10/18/17 13:29 Alkaline Phosphatase 147 U/L (50-170) 10/18/17 13:29 Troponin I 0.074 ng/ml (0.00-0.10) 10/18/17 13:29 B-Natriuretic Peptide 6903 pg/mL (5-650) H 10/18/17 13:29 Total Protein 6.7 gm/dL (6.2-8.2) 10/18/17 13:29 Albumin 3.5 gm/dl (3.4-5.0) 10/18/17 13:29 TSH 3.067 uIU/mL (0.358-3.74) 10/18/17 13:29 Urine Color Dark yellow 10/18/17 15:36 Urine Appearance Clear 10/18/17 15:36 Urine pH 5.0 pH (5.0-7.0) 10/18/17 15:36 Ur Specific [place] >=1.030 SP.GR. (1.005-1.030) 10/18/17 15:36 Urine Protein 30 mg/dL (NEGATIVE) H 10/18/17 15:36 Urine Glucose (UA) Negative mg/dL (NEGATIVE) 10/18/17 15:36 Urine Ketones Negative mg/dL (NEGATIVE) 10/18/17 15:36 Urine Blood 25 /ul (NEGATIVE) H 10/18/17 15:36 Urine Nitrate Negative (NEGATIVE) 10/18/17 15:36 Urine Bilirubin Negative mg/dl (NEGATIVE) 10/18/17 15:36 Prot Sulfosalicylic Acd Negative mg/dL (0) 10/18/17 15:36 Urine Urobilinogen Normal EU/dl (NORMAL) 10/18/17 15:36 Ur Leukocyte Esterase Negative /ul (NEGATIVE) 10/18/17 15:36 Urine RBC 0-5 /hpf (0-5) 10/18/17 15:36 Urine WBC None seen /hpf (0-5) 10/18/17 15:36 Ur Epithelial Cells None seen /hpf (0-5) 10/18/17 15:36 Urine Bacteria None seen (NONE) 10/18/17 15:36 Hyaline Casts 0-5 /LPF (NONE) H 10/18/17 15:36 Urine Culture Comments Culture to follow 10/18/17 15:36 Influenza Type A Ag Negative (NEGATIVE) 10/18/17 14:00 Influenza Type B Ag Negative (NEGATIVE) 10/18/17 14:00 Assessment/Plan - Narrative Narrative: Olaf is an 87 yo male with: 1) New Onset Atrial Fibrillation with Rapid Ventricular Response. In the ER his heart rate has been 100-120. As this is mildly elevated will give metoprolol for control and monitor response. Will plan to get echocardiogram. Will start lovenox. Unclear etiology at this time. Thyroid normal. Possible heart failure or pneumonia could be responsible. 2) CHF - Pulmonary edema and new afib. CHF is likely. Will get echocardiogram. 3) Pneumonia - Chest xray with possible pneumonia and leukocytosis. Will treat with azithromycin and rocephin. 4) Dementia - Patient has been very functional, only recently diagnosed with mild alzhiemer's dementia. Family reports no major concerns, but he does occasionally get confused at night. - Assessment/Plan (1) New onset atrial fibrillation Problem: Acute (2) Pneumonia Problem: Acute Qualifiers: Pneumonia type: due to unspecified organism Laterality: bilateral Lung location: lower lobe of lung Qualified Code(s): J18.9 - Pneumonia, unspecified organism (3) CHF (congestive heart failure) Problem: Suspected Qualifiers: Congestive heart failure type: systolic Congestive heart failure chronicity : acute Qualified Code(s): I50.21 - Acute systolic (congestive) heart failure (4) Dementia Problem: Chronic Qualifiers: Dementia type: Alzheimer's disease Alzheimer's disease onset: late-onset Dementia behavioral disturbance: without behavioral disturbance Qualified Code (s): G30.1 - Alzheimer's disease with late onset; F02.80 - Dementia in other diseases classified elsewhere without behavioral disturbance; F02.80 - Dementia in other diseases classified elsewhere without behavioral disturbance; F02.80 - Dementia in other diseases classified elsewhere without behavioral disturbance
[2017-10-18] MEDS ORDERED: LORazepam 2 MG/ML DISP.SYRIN IV ONE (23:18)
[2017-10-18] MEDS: LEVALBUTEROL HCL 1.25 MG/3 ML AMPUL IH SCH (23:57)
[2017-10-19] MEDS: LEVALBUTEROL HCL 1.25 MG/3 ML AMPUL IH SCH ×6 (02:20→22:52)
--- NOTE | 2017-10-19 05:06 | PN ---
Subjective - Date and Time Seen Date: 10/19/17 Time: 06:42 Subjective Narrative: Pt seen this am. He appears drowsy. Became agitated in the night and required Ativan to calm him down. Went into Afib with RVR in the 125s and 130s which responded to the Metoprolol tatrate po and controlled hr into the 110's. Nursing unable to give scheduled po metoprolol this am. Is in A-fib with RVR 120s-130s- Will give Metoprolol IVP. Required o2 supplementation to keep pox > 90. Objective - Vitals Vitals: Last Vital Signs Temp 36.8 C 10/19/17 00:39 Pulse 134 H 10/19/17 02:30 Resp 20 10/19/17 02:30 BP 90/61 10/19/17 00:39 Pulse Ox 98 10/19/17 02:20 - Abnormal Lab Findings Abnormal Lab Findings: Abnormal Lab Results 10/18/17 10/18/17 Range/Units 15:36 16:09 Lactic Acid, Venous 2.8 H* (0.4-1.9) mmol/L Urine Protein 30 H (NEGATIVE) mg/dL Urine Blood 25 H (NEGATIVE) /ul Hyaline Casts 0-5 H (NONE) /LPF - Exam Constitutional: Present: Alert, No distress, Somnolent ENT Exam: Present: normal ENT inspection, muffled/hoarse voice. Absent: nasal congestion, nasal drainage Neck: Present: full range of motion, supple Breasts: Present: Exam deferred Respiratory: Present: no accessory muscle use, decreased breath sounds Cardiovascular/Chest: Present: irregularly irregular, edema - + 1 ble Abdomen: Present: Normal bowel sounds, soft, nontender /Rectal: Present: Exam deferred Extremity: Present: normal range of motion, non-tender, lower extremity edema Skin Exam: Present: warm/dry, pallor Lymphatic: Present: no adenopathy Neurologic: Present: no motor/sensory deficits, alert Appearance: Present: impaired insight Eye contact: Present: cooperative Thoughts: Present: no apparent hallucination Assessment/Plan Plan Narrative: Mr. Kennedy is a 87-yr-old pt with: 1.) New onset Atrial Fibrilation- Confirmed by the EKG with HR in the 130s at the ED on DOA. Received Metoprolol IVP 5 mg which controlled HR to the 110s. Started on Metoprolol Tartrate 25 mg q 6. He will need an Electrocardiogram to check for cardiac abnormalities. TSH normal. Will check Magnesium level and will remain on telemetry monitoring. Thromboembolism is a major complication with A-fib, however, net clinical benefit needs to be considered in making the decision of thromboembolic prophylaxis treatment with anticoagulants vs risk of bleeding. Will discuss with spouse as pt does not have the ability to make an informed decision. 2.) Congestive Heart Failure- likely brought forth by A-fib or vise vesa, CHF likely diastolic. CXR findings - pulmonary vascular congestion/interstitial edema, peripheral edema, peripheral edema + 1-2, BNP --> 6903. Given Lasix 40mg in addition to 20 mg due to Dyspnea/desats. Will determine daily dose based on fluid volume status. Monitor strick I/Os, daily weights. Plan to do an Echocardiogram. Started on BB, his JOSÉ LUIS inhibitor on hold due to TEODORO. 3.) Bilat. Pneumonia- is questionable on CXR but also likely due to signs of systemic infection- lactic acid-->3.0, left shift on the hemogram, Had SOB & desats. Therefore, maybe reasonable to treat as CAP otherwise, with hospitalization elderly age & comorbidities, it may easily progress to PNA. Monitor CBC, Neb treatments and Push cornet q 2 hrs. 4.) Acute Kidney Injury- CR -->2.0 His baseline Cr is usually in the 1.1's. Likely pre-renal due to third-spacing of fluid from CHF. Given lasix to pull fluid into intravascular space. Hold of IVF hydration unless there is no response to Lasix. Monitor urinary output. 5.) Delirium- Became agitated and restless on the night of DOA. Responded well to Ativan 0.5mg. Condition is multifactorial-Precipitating and predesposing factors: Dementia? comorbid illness, elderly age, new enviroment. Non- pharmacological intevention is best--> normalize sleep wake cycle, Encourage AMBULATION, Use of sitter. Minimize pharmacological treatment to manage agitation. 6.) Chronic stable conditions: Athritis Gout GERD HTN Osteoarthritis. - Problems/Diagnosis (1) Acute kidney injury Problem: Acute (2) CHF (congestive heart failure) Problem: Suspected Qualifiers: Congestive heart failure type: systolic Congestive heart failure chronicity : acute Qualified Code(s): I50.21 - Acute systolic (congestive) heart failure (3) New onset atrial fibrillation Problem: Acute (4) Pneumonia Problem: Acute Qualifiers: Pneumonia type: due to unspecified organism Laterality: bilateral Lung location: lower lobe of lung Qualified Code(s): J18.9 - Pneumonia, unspecified organism (5) Dementia Problem: Chronic Qualifiers: Dementia type: Alzheimer's disease Alzheimer's disease onset: late-onset Dementia behavioral disturbance: without behavioral disturbance Qualified Code (s): G30.1 - Alzheimer's disease with late onset; F02.80 - Dementia in other diseases classified elsewhere without behavioral disturbance; F02.80 - Dementia in other diseases classified elsewhere without behavioral disturbance; F02.80 - Dementia in other diseases classified elsewhere without behavioral disturbance (6) GERD (gastroesophageal reflux disease) Problem: Chronic (7) Gout Problem: Chronic
[2017-10-19 05:46] LABS: Hematocrit 39.9 % (42.0-52.0); Hemoglobin 13.4 gm/dL (13.5-18.0); Mean Cell Volume 90.3 fl (78-100); Mean Corpuscular Hemoglobin 30.3 pg (27-31); Mean Corpuscular Hgb Conc 33.6 g/dl (32-36); Mean Platelet Volume 11.2 fl (6.0-9.5); Neutrophil # 16.3 K/mm3 (1.3-6.0); Neutrophil % 90.7 % (42-75.0); Platelet Count 152 K/mm3 (150-450); Red Blood Count 4.42 M/mm3 (4.7-6.0); Red Cell Distribution Width 14.4 % (11.5-14.0); White Blood Count 17.9 K/mm3 (4.0-10.5)
[2017-10-19 05:59] LABS: Anion Gap 14.3 mmol/L (6.8-13.8); BUN/Creatinine Ratio 26.3 (9.0-21.6); Calcium * 8.1 mg/dL (7.9-10.9); Carbon Dioxide 28.5 mmol/L (24-32.6); Magnesium 2.3 mg/dL (1.2-2.8); Potassium 3.8 mmol/L (3.4-4.6)
[2017-10-19] MEDS ORDERED: METOPROLOL TARTRATE 1 MG/ML AMPUL IV ONE (06:41)
[2017-10-19] MEDS: METOPROLOL TARTRATE 25 MG TABLET PO SCH (07:07)
[2017-10-19] MEDS ORDERED: DILTIAZEM HCL 5 MG/ML VIAL IV ONE ×2 (08:52→11:26)
[2017-10-19] MEDS ORDERED: NORMAL SALINE 1,000 ML IV PRN (08:53)
[2017-10-19] MEDS: AZITHROMYCIN 250 MG TABLET PO SCH (09:05)
[2017-10-19] MEDS: cefTRIAXone SODIUM 1,000 MG in DEXTROSE 5 % IN WATER 50 ML IV SCH ×2 (09:05)
[2017-10-19] MEDS: DILTIAZEM HCL 60 MG TABLET PO SCH ×2 (09:36→16:47)
[2017-10-19] MEDS: ENOXAPARIN SODIUM 40 MG/0.4 ML SYRG SC SCH (16:47)
[2017-10-20] MEDS ORDERED: DILTIAZEM HCL 60 MG TABLET PO SCH (01:30)
[2017-10-20] MEDS: LEVALBUTEROL HCL 1.25 MG/3 ML AMPUL IH SCH ×2 (02:08→06:13)
[2017-10-20] MEDS ORDERED: LORazepam 2 MG/ML DISP.SYRIN IV ONE ×2 (04:35→21:45)
[2017-10-20] MEDS ORDERED: LORazepam 2 MG/ML DISP.SYRIN IM ONE (04:51)
--- NOTE | 2017-10-20 05:33 | PN ---
Subjective - Date and Time Seen Date: 10/20/17 Time: 05:29 Subjective Narrative: Pt. examined this am. Nursing reports agitation and restlessness towards morning hours. A -fib in the 110s -120s, and higher with activity. Has not required oxygen supplementation. No other acute events overnight. Objective - Vitals Vitals: Last Vital Signs Temp 36.9 C 10/19/17 23:19 Pulse 124 H 10/20/17 02:18 Resp 20 10/20/17 02:18 BP 101/67 10/19/17 23:19 Pulse Ox 98 10/20/17 02:08 - Exam Constitutional: Present: Alert, Cooperative, No distress, Elderly ENT Exam: Present: normal ENT inspection. Absent: nasal drainage Neck: Present: non-tender, full range of motion, supple Breasts: Present: Exam deferred Respiratory: Present: lungs clear, no accessory muscle use Cardiovascular/Chest: Present: normal peripheral pulses, regular rate, rhythm, no chest tenderness Abdomen: Present: Normal bowel sounds, soft, nontender /Rectal: Present: Exam deferred Extremity: Present: normal range of motion, non-tender, normal inspection Skin Exam: Present: warm/dry, no cyanosis Lymphatic: Present: no adenopathy Neurologic: Present: disoriented x 3 Appearance: Present: appropriate appearance, impaired recent memory, impaired remote memory Eye contact: Present: cooperative Thoughts: Present: no apparent hallucination Assessment/Plan Plan Narrative: Mr. Kennedy is a 87-yr-old pt with: 1.) New onset Atrial Fibrilation- Confirmed by the EKG with HR in the 130s at the ED on DOA. Received Metoprolol IVP 5 mg which controlled HR to the 110s. Started on Metoprolol Tartrate 25 mg q 6. He will need an Electrocardiogram to check for cardiac abnormalities. TSH normal. Will check Magnesium level and will remain on telemetry monitoring. Thromboembolism is a major complication with A-fib, however, net clinical benefit needs to be considered in making the decision of thromboembolic prophylaxis treatment with anticoagulants vs risk of bleeding. Will discuss with spouse as pt does not have the ability to make an informed decision. 2.) Congestive Heart Failure- likely brought forth by A-fib or vise vesa, CHF likely diastolic. CXR findings - pulmonary vascular congestion/interstitial edema, peripheral edema, peripheral edema + 1-2, BNP --> 6903. Given Lasix 40mg in addition to 20 mg due to Dyspnea/desats. Will determine daily dose based on fluid volume status. Monitor strick I/Os, daily weights. Plan to do an Echocardiogram. Started on BB, his JOSÉ LUIS inhibitor on hold due to TEODORO. 3.) Bilat. Pneumonia- is questionable on CXR but also likely due to signs of systemic infection- lactic acid-->3.0, left shift on the hemogram, Had SOB & desats. Therefore, maybe reasonable to treat as CAP otherwise, with hospitalization elderly age & comorbidities, it may easily progress to PNA. Monitor CBC, Neb treatments and Push cornet q 2 hrs. -10/19- [facility]-->17,900 with LT shift. Started on Azithromycin and Rocephin. 4.) Acute Kidney Injury- CR -->2.0 His baseline Cr is usually in the 1.1's. Likely pre-renal due to third-spacing of fluid from CHF. Given lasix to pull fluid into intravascular space. Hold of IVF hydration unless there is no response to Lasix. Monitor urinary output. 5.) Delirium- Became agitated and restless on the night of DOA. Responded well to Ativan 0.5mg. Condition is multifactorial-Precipitating and predesposing factors: Dementia? comorbid illness, elderly age, new enviroment. Non- pharmacological intervention is best--> normalize sleep wake cycle, Encourage AMBULATION, Use of sitter. Minimize pharmacological treatment to manage agitation. 6.) Chronic stable conditions: Athritis Gout GERD HTN Osteoarthritis. - Problems/Diagnosis (1) Acute kidney injury Problem: Acute (2) CHF (congestive heart failure) Problem: Suspected Qualifiers: Congestive heart failure type: systolic Congestive heart failure chronicity : acute Qualified Code(s): I50.21 - Acute systolic (congestive) heart failure (3) New onset atrial fibrillation Problem: Acute (4) Pneumonia Problem: Acute Qualifiers: Pneumonia type: due to unspecified organism Laterality: bilateral Lung location: lower lobe of lung Qualified Code(s): J18.9 - Pneumonia, unspecified organism (5) Dementia Problem: Chronic Qualifiers: Dementia type: Alzheimer's disease Alzheimer's disease onset: late-onset Dementia behavioral disturbance: without behavioral disturbance Qualified Code (s): G30.1 - Alzheimer's disease with late onset; F02.80 - Dementia in other diseases classified elsewhere without behavioral disturbance; F02.80 - Dementia in other diseases classified elsewhere without behavioral disturbance; F02.80 - Dementia in other diseases classified elsewhere without behavioral disturbance (6) GERD (gastroesophageal reflux disease) Problem: Chronic (7) Gout Problem: Chronic
[2017-10-20 05:40] LABS: Hematocrit 39.9 % (42.0-52.0); Hemoglobin 13.1 gm/dL (13.5-18.0); Mean Cell Volume 90.5 fl (78-100); Mean Corpuscular Hemoglobin 29.7 pg (27-31); Mean Corpuscular Hgb Conc 32.8 g/dl (32-36); Mean Platelet Volume 11.3 fl (6.0-9.5); Neutrophil # 10.1 K/mm3 (1.3-6.0); Platelet Count 152 K/mm3 (150-450); Red Blood Count 4.41 M/mm3 (4.7-6.0); Red Cell Distribution Width 14.5 % (11.5-14.0); White Blood Count 12.1 K/mm3 (4.0-10.5)
[2017-10-20 05:51] LABS: Anion Gap 11.9 mmol/L (6.8-13.8); BUN/Creatinine Ratio 27.1 (9.0-21.6); Calcium * 8.5 mg/dL (7.9-10.9); Carbon Dioxide 28.2 mmol/L (24-32.6); Estimated Creat Clear 37.9; Potassium 3.1 mmol/L (3.4-4.6)
[2017-10-20] MEDS ORDERED: DILTIAZEM HCL 5 MG/ML VIAL IV ONE (07:17)
[2017-10-20] MEDS ORDERED: DILTIAZEM HCL 125 MG in DEXTROSE 5 % IN WATER 100 ML IV PRN ×2 (08:47)
[2017-10-20] MEDS ORDERED: NORMAL SALINE 500 ML IV ONE (08:48)
[2017-10-20] MEDS ORDERED: POTASSIUM CHLORIDE 20 MEQ TABLET.SA PO ONE (09:07)
[2017-10-20] MEDS: cefTRIAXone SODIUM 1,000 MG in DEXTROSE 5 % IN WATER 50 ML IV SCH ×2 (09:30)
[2017-10-20] MEDS: AZITHROMYCIN 250 MG TABLET PO SCH (09:30)
[2017-10-20] MEDS ORDERED: LEVALBUTEROL HCL 1.25 MG/3 ML AMPUL IH PRN (09:34)
[2017-10-20] MEDS ORDERED: DILTIAZEM HCL 90 MG TABLET PO SCH (10:00)
[2017-10-20] MEDS ORDERED: NORMAL SALINE 1,000 ML IV PRN (10:14)
[2017-10-20] MEDS: AMIODARONE HCL 900 MG in DEXTROSE 5 % IN WATER 500 ML IV SCH ×2 (10:33)
[2017-10-20] MEDS ORDERED: AMIODARONE HCL 150 MG in DEXTROSE 5 % IN WATER 100 ML IV ONE ×2 (12:26)
[2017-10-20] MEDS: METOPROLOL TARTRATE 25 MG TABLET PO SCH ×3 (12:32→23:46)
[2017-10-20] MEDS: ENOXAPARIN SODIUM 40 MG/0.4 ML SYRG SC SCH (16:30)
[2017-10-20] MEDS: diphenhydrAMINE HCL 25 MG CAPSULE PO PRN ×2 (17:03→23:47)
--- NOTE | 2017-10-21 05:38 | PN ---
Subjective - Date and Time Seen Date: 10/21/17 Time: 05:36 Subjective Narrative: Pt examined this am. Appears confused and restless. Required Ativan during the night due to extreme agitation. Still in Afib with hr in th 110s-120s and remains on Amiodarone gtt. Objective - Vitals Vitals: Last Vital Signs Temp 36.9 C 10/20/17 21:00 Pulse 121 H 10/21/17 05:35 Resp 24 H 10/21/17 05:35 BP 124/87 10/21/17 05:35 Pulse Ox 94 10/21/17 04:35 - Abnormal Lab Findings Abnormal Lab Findings: Abnormal Lab Results 10/20/17 10/20/17 Range/Units 05:20 05:20 WBC 12.1 H D (4.0-10.5) K/mm3 RBC 4.41 L (4.7-6.0) M/mm3 Hgb 13.1 L (13.5-18.0) gm/dL Hct 39.9 L (42.0-52.0) % RDW 14.5 H (11.5-14.0) % MPV 11.3 H (6.0-9.5) fl Immature Gran % (Auto) 0.70 H (0.001-0.429) % Immature Gran # (Auto) 0.08 H (0.000-0.0310) K/mm3 Neutrophils % 84.0 H (42-75.0) % Lymphocytes % 8.0 L (20-51) % Neutrophils # 10.1 H (1.3-6.0) K/mm3 Lymphocytes # 1.0 L (1.5-3.5) k/mm3 Sodium 144 H (132-142) mmol/L Plasma Sodium 144 H (130-142) mmol/L Potassium 3.1 L (3.4-4.6) mmol/L Chloride 107 H (97-106) mmol/L BUN 42 H (6-23) mg/dL Creatinine 1.55 H (0.4-1.4) mg/dL Est GFR (Non-Af Amer) 45 L D (60-130) mL/min BUN/Creatinine Ratio 27.1 H (9.0-21.6) - Exam Constitutional: Present: Alert, No distress, Elderly ENT Exam: Present: normal ENT inspection Neck: Present: non-tender, full range of motion Breasts: Present: Exam deferred Respiratory: Present: lungs clear, no accessory muscle use Cardiovascular/Chest: Present: irregularly irregular Abdomen: Present: Normal bowel sounds, soft, nontender /Rectal: Present: Exam deferred Extremity: Present: normal range of motion, non-tender, normal inspection Skin Exam: Present: warm/dry, no cyanosis Neurologic: Present: alert, disoriented x 3 Appearance: Present: impaired recent memory, impaired remote memory Eye contact: Present: compulsive Thoughts: Present: auditory hallucinations, incoherent, visual hallucinations Assessment/Plan Plan Narrative: Mr. Kennedy is a 87-yr-old pt with: 1.) New onset Atrial Fibrilation- Confirmed by the EKG with HR in the 130s at the ED on DOA. Received Metoprolol IVP 5 mg which controlled HR to the 110s. Started on Metoprolol Tartrate 25 mg q 6. He will need an Electrocardiogram to check for cardiac abnormalities. TSH normal. Will check Magnesium level and will remain on telemetry monitoring. Thromboembolism is a major complication with A-fib, however, net clinical benefit needs to be considered in making the decision of thromboembolic prophylaxis treatment with anticoagulants vs risk of bleeding. Will discuss with spouse as pt does not have the ability to make an informed decision. 10/21/- Transfered to the SCU on 10/20 due to uncontrolled Afib with RVR not responding to IVP Diltiazem. Started on Amiodarone gtt. Remains in Afib with HR in the 110s-120s 2.) Congestive Heart Failure- likely brought forth by A-fib or vise vesa, CHF likely diastolic. CXR findings - pulmonary vascular congestion/interstitial edema, peripheral edema, peripheral edema + 1-2, BNP --> 6903. Given Lasix 40mg in addition to 20 mg due to Dyspnea/desats. Will determine daily dose based on fluid volume status. Monitor strick I/Os, daily weights. Plan to do an Echocardiogram. Started on BB, his JOSÉ LUIS inhibitor on hold due to TEODORO. 3.) Bilat. Pneumonia- is questionable on CXR but also likely due to signs of systemic infection- lactic acid-->3.0, left shift on the hemogram, Had SOB & desats. Therefore, maybe reasonable to treat as CAP otherwise, with hospitalization elderly age & comorbidities, it may easily progress to PNA. Monitor CBC, Neb treatments and Push cornet q 2 hrs. -10/19- [facility]-->17,900 with LT shift. Started on Azithromycin and Rocephin. 4.) Acute Kidney Injury- CR -->2.0 His baseline Cr is usually in the 1.1's. Likely pre-renal due to third-spacing of fluid from CHF. Given lasix to pull fluid into intravascular space. Hold of IVF hydration unless there is no response to Lasix. Monitor urinary output. 5.) Delirium- Became agitated and restless on the night of DOA. Responded well to Ativan 0.5mg. Condition is multifactorial-Precipitating and predesposing factors: Dementia? comorbid illness, elderly age, new enviroment. Non- pharmacological intervention is best--> normalize sleep wake cycle, Encourage AMBULATION, Use of sitter. Minimize pharmacological treatment to manage agitation. 6.) Chronic stable conditions: Athritis Gout GERD HTN Osteoarthritis. - Problems/Diagnosis (1) Acute kidney injury Problem: Acute (2) CHF (congestive heart failure) Problem: Suspected Qualifiers: Congestive heart failure type: systolic Congestive heart failure chronicity : acute Qualified Code(s): I50.21 - Acute systolic (congestive) heart failure (3) New onset atrial fibrillation Problem: Acute (4) Pneumonia Problem: Acute Qualifiers: Pneumonia type: due to unspecified organism Laterality: bilateral Lung location: lower lobe of lung Qualified Code(s): J18.9 - Pneumonia, unspecified organism (5) Dementia Problem: Chronic Qualifiers: Dementia type: Alzheimer's disease Alzheimer's disease onset: late-onset Dementia behavioral disturbance: without behavioral disturbance Qualified Code (s): G30.1 - Alzheimer's disease with late onset; F02.80 - Dementia in other diseases classified elsewhere without behavioral disturbance; F02.80 - Dementia in other diseases classified elsewhere without behavioral disturbance; F02.80 - Dementia in other diseases classified elsewhere without behavioral disturbance (6) GERD (gastroesophageal reflux disease) Problem: Chronic (7) Gout Problem: Chronic
[2017-10-21 05:58] LABS: Hematocrit 41.8 % (42.0-52.0); Hemoglobin 13.5 gm/dL (13.5-18.0); Mean Cell Volume 91.9 fl (78-100); Mean Corpuscular Hemoglobin 29.7 pg (27-31); Mean Corpuscular Hgb Conc 32.3 g/dl (32-36); Mean Platelet Volume 11.4 fl (6.0-9.5); Neutrophil # 6.6 K/mm3 (1.3-6.0); Neutrophil % 79.1 % (42-75.0); Platelet Count 141 K/mm3 (150-450); Red Blood Count 4.55 M/mm3 (4.7-6.0); Red Cell Distribution Width 14.6 % (11.5-14.0); White Blood Count 8.4 K/mm3 (4.0-10.5)
[2017-10-21] MEDS: METOPROLOL TARTRATE 25 MG TABLET PO SCH ×2 (06:21→11:57)
[2017-10-21] MEDS: diphenhydrAMINE HCL 25 MG CAPSULE PO PRN (06:21)
[2017-10-21 06:34] LABS: Anion Gap 13.6 mmol/L (6.8-13.8); Calcium * 8.5 mg/dL (7.9-10.9); Carbon Dioxide 25.9 mmol/L (24-32.6); Estimated Creat Clear 45.6; Potassium 3.5 mmol/L (3.4-4.6)
[2017-10-21] MEDS: AZITHROMYCIN 250 MG TABLET PO SCH (08:04)
[2017-10-21] MEDS: cefTRIAXone SODIUM 1,000 MG in DEXTROSE 5 % IN WATER 50 ML IV SCH ×2 (08:48)
[2017-10-21] MEDS ORDERED: AMIODARONE HCL 200 MG TABLET PO SCH (10:15)
[2017-10-21] MEDS ORDERED: SENNOSIDES/DOCUSATE SODIUM 1 TAB TABLET PO SCH (11:00)
[2017-10-21] MEDS: AMIODARONE HCL 900 MG in DEXTROSE 5 % IN WATER 500 ML IV SCH ×2 (12:29)
[2017-10-21] MEDS ORDERED: FUROSEMIDE 10 MG/ML VIAL IV ONE (15:29)
[2017-10-21] MEDS: ENOXAPARIN SODIUM 40 MG/0.4 ML SYRG SC SCH (16:08)
[2017-10-21] MEDS ORDERED: diphenhydrAMINE HCL 25 MG CAPSULE PO PRN (17:37)
[2017-10-21] MEDS ORDERED: LEVALBUTEROL HCL 1.25 MG/3 ML AMPUL IH PRN (17:37)
[2017-10-21] MEDS: WARFARIN SODIUM 5 MG TABLET PO ONE ×2 (20:21→20:43)
[2017-10-21] MEDS: LISINOPRIL 5 MG TABLET PO SCH (20:22)
[2017-10-21] MEDS: SENNOSIDES/DOCUSATE SODIUM 1 TAB TABLET PO SCH (20:23)
[2017-10-21] MEDS: METOPROLOL SUCCINATE 50 MG TABLET.SA PO SCH (20:24)
[2017-10-21] MEDS ORDERED: METOPROLOL SUCCINATE 50 MG TABLET.SA PO SCH (21:00)
[2017-10-21] MEDS ORDERED: LORazepam 2 MG/ML DISP.SYRIN IV ONE ×2 (21:00→22:23)
[2017-10-22 06:05] LABS: Hematocrit 44.2 % (42.0-52.0); Hemoglobin 14.4 gm/dL (13.5-18.0); Mean Cell Volume 91.1 fl (78-100); Mean Corpuscular Hemoglobin 29.7 pg (27-31); Mean Corpuscular Hgb Conc 32.6 g/dl (32-36); Mean Platelet Volume 10.6 fl (6.0-9.5); Neutrophil # 5.4 K/mm3 (1.3-6.0); Platelet Count 145 K/mm3 (150-450); Red Blood Count 4.85 M/mm3 (4.7-6.0); Red Cell Distribution Width 14.5 % (11.5-14.0); White Blood Count 7.5 K/mm3 (4.0-10.5)
[2017-10-22 06:08] LABS: Prothrombin Time (Patient) 11.9 Seconds (9.0-11.0)
[2017-10-22 06:16] LABS: Anion Gap 13.2 mmol/L (6.8-13.8); BUN/Creatinine Ratio 21.3 (9.0-21.6); Bilirubin, Total 0.9 mg/dL (0.0-1.1); Ca. Corrected For Albumin 9.4 mg/dL (8.4-10.2); Calcium * 8.9 mg/dL (7.9-10.9); Carbon Dioxide 25.6 mmol/L (24-32.6); Potassium 3.8 mmol/L (3.4-4.6); Total Protein 6.2 gm/dL (6.2-8.2)
[2017-10-22 06:19] LABS: INR 1.19 INR (0.90-1.10)
[2017-10-22] MEDS ORDERED: METOPROLOL TARTRATE 50 MG TABLET PO ONE (08:30)
--- NOTE | 2017-10-22 08:45 | ECHO ---
This report is available in the EMR
[2017-10-22] MEDS ORDERED: AZITHROMYCIN 250 MG TABLET PO SCH (09:00)
[2017-10-22] MEDS: SENNOSIDES/DOCUSATE SODIUM 1 TAB TABLET PO SCH ×2 (10:08→20:53)
[2017-10-22] MEDS: AMIODARONE HCL 200 MG TABLET PO SCH (10:09)
[2017-10-22] MEDS: LISINOPRIL 5 MG TABLET PO SCH (10:09)
[2017-10-22] MEDS: risperiDONE 0.25 MG TABLET PO SCH ×2 (10:10→20:53)
[2017-10-22] MEDS: cefTRIAXone SODIUM 1,000 MG in DEXTROSE 5 % IN WATER 50 ML IV SCH ×2 (10:12)
[2017-10-22] MEDS: ENOXAPARIN SODIUM 40 MG/0.4 ML SYRG SC SCH (17:36)
[2017-10-22] MEDS: WARFARIN SODIUM 5 MG TABLET PO SCH (17:37)
[2017-10-22] MEDS: METOPROLOL SUCCINATE 50 MG TABLET.SA PO SCH (20:52)
[2017-10-22] MEDS: HALOPERIDOL 1 MG TABLET PO PRN (22:15)
--- NOTE | 2017-10-22 23:51 | PN ---
Subjective - Date and Time Seen Date: 10/22/17 Time: 08:30 Subjective Narrative: Olaf was very restless overnight and this morning. He has been aggressive and very aggitated at times. Remains in afib. Does not fol.ow questioning and is difficult to orient. Objective - Vitals Vitals: Last Vital Signs Temp 37.6 C H 10/22/17 23:06 Pulse 108 H 10/22/17 23:06 Resp 24 H 10/22/17 23:06 BP 146/105 10/22/17 23:06 Pulse Ox 94 10/22/17 23:06 - Abnormal Lab Findings Abnormal Lab Findings: Abnormal Lab Results 10/22/17 10/22/17 10/22/17 Range/Units 05:50 05:50 05:50 RDW 14.5 H (11.5-14.0) % Plt Count 145 L (150-450) K/mm3 MPV 10.6 H (6.0-9.5) fl Lymphocytes % 12.0 L (20-51) % Monocytes % 12.9 H (0.0-9) % Lymphocytes # 0.9 L (1.5-3.5) k/mm3 PT 11.9 H (9.0-11.0) Seconds INR (Anticoag Therapy) 1.19 H (0.90-1.10) INR pCO2 (35.0-48.0) mmHg pO2 (83.0-108.0) mmHg HCO3 (21.0-28.0) mmol/L Base Excess (-2.0-3.0) mmol/L ABG pH (7.35-7.45) Sodium 145 H (132-142) mmol/L Plasma Sodium 145 H (130-142) mmol/L Chloride 110 H (97-106) mmol/L BUN 27 H (6-23) mg/dL Est GFR (Non-Af Amer) 57 L (60-130) mL/min Lactic Acid, Venous (0.4-1.9) mmol/L Albumin 3.0 L (3.4-5.0) gm/dl 10/22/17 10/22/17 10/22/17 Range/Units 15:04 18:11 Unknown RDW (11.5-14.0) % Plt Count (150-450) K/mm3 MPV (6.0-9.5) fl Lymphocytes % (20-51) % Monocytes % (0.0-9) % Lymphocytes # (1.5-3.5) k/mm3 PT (9.0-11.0) Seconds INR (Anticoag Therapy) (0.90-1.10) INR pCO2 22.8 L (35.0-48.0) mmHg pO2 69.1 L (83.0-108.0) mmHg HCO3 18.5 L (21.0-28.0) mmol/L Base Excess -2.3 L (-2.0-3.0) mmol/L ABG pH 7.53 H (7.35-7.45) Sodium (132-142) mmol/L Plasma Sodium (130-142) mmol/L Chloride (97-106) mmol/L BUN (6-23) mg/dL Est GFR (Non-Af Amer) (60-130) mL/min Lactic Acid, Venous 3.0 H* 2.5 H* (0.4-1.9) mmol/L Albumin (3.4-5.0) gm/dl - Exam Constitutional: Present: Other - Awake, restless, oriented x 0, carbled speech Respiratory: Present: lungs clear, normal breath sounds Cardiovascular/Chest: Present: no edema, no murmur, tachycardia Abdomen: Present: Normal bowel sounds, soft, nontender, nondistended Neurologic: Present: disoriented x 3. Absent: sensory deficit Eye contact: Present: threatening eye contact, increased rate of speech, uncooperative Thoughts: Present: delusions, incoherent Assessment/Plan Plan Narrative: 1) Pneumonia - Continue rocephin/azithromycin. WBC normalized, off oxygen. Clinically no respiratory distress 2) Acute Renal Failure - Resolved 3) Acute Delirium - Blood cultures negative, no focal neurological deficits, no evidence of hepatic encephalopathy, current medications are unlikely causes. Patient had previously been given ativan, benadryl. These may contribute. Patient has also moved from medical room, to a SCU room, to a medical room, and then to a closer medical room to the nurses station to more closely monitor. This in a man that was showing baseline signs of dementia and is not used to being away from home has now changed environments about 5 times in the last few days and I suspect this plus the benadryl and maybe ativan as contributing, along with him not feeling well from pneumonia, renal failure, and heart failure. 4) Acute Systolic CHF - EF 5-10%. On lisinopril, metoprolol succinate, Coumadin. Has new onset afib 5) New Onset atrial fibrillation - On amiodarone and metoprolol for rate control. Patient continues to have elevated heart rate, but acceptable range. Likely increased from delirium and aggitation. - Problems/Diagnosis (1) Delirium Problem: Acute (2) Acute kidney injury Problem: Resolved (3) New onset atrial fibrillation Problem: Acute (4) Pneumonia Problem: Acute Qualifiers: Pneumonia type: due to unspecified organism Laterality: bilateral Lung location: lower lobe of lung Qualified Code(s): J18.9 - Pneumonia, unspecified organism (5) CHF (congestive heart failure) Problem: Suspected Qualifiers: Congestive heart failure type: systolic Congestive heart failure chronicity : acute Qualified Code(s): I50.21 - Acute systolic (congestive) heart failure (6) Dementia Problem: Chronic Qualifiers: Dementia type: Alzheimer's disease Alzheimer's disease onset: late-onset Dementia behavioral disturbance: without behavioral disturbance Qualified Code (s): G30.1 - Alzheimer's disease with late onset; F02.80 - Dementia in other diseases classified elsewhere without behavioral disturbance; F02.80 - Dementia in other diseases classified elsewhere without behavioral disturbance; F02.80 - Dementia in other diseases classified elsewhere without behavioral disturbance
[2017-10-23] MEDS: HALOPERIDOL 1 MG TABLET PO PRN (04:37)
[2017-10-23 06:09] LABS: INR 1.3 INR (0.90-1.10)
[2017-10-23 08:41] LABS: Hematocrit 42.2 % (42.0-52.0); Hemoglobin 13.8 gm/dL (13.5-18.0); Mean Cell Volume 91.1 fl (78-100); Mean Corpuscular Hemoglobin 29.8 pg (27-31); Mean Corpuscular Hgb Conc 32.7 g/dl (32-36); Mean Platelet Volume 10.8 fl (6.0-9.5); Neutrophil # 6.3 K/mm3 (1.3-6.0); Neutrophil % 76.9 % (42-75.0); Platelet Count 166 K/mm3 (150-450); Red Blood Count 4.63 M/mm3 (4.7-6.0); Red Cell Distribution Width 14.5 % (11.5-14.0); White Blood Count 8.2 K/mm3 (4.0-10.5)
[2017-10-23 08:53] LABS: Albumin * 2.9 gm/dl (3.4-5.0); Anion Gap 15.8 mmol/L (6.8-13.8); BUN/Creatinine Ratio 21.4 (9.0-21.6); Bilirubin, Total 1.1 mg/dL (0.0-1.1); Ca. Corrected For Albumin 9.3 mg/dL (8.4-10.2); Calcium * 8.7 mg/dL (7.9-10.9); Carbon Dioxide 24.1 mmol/L (24-32.6); Potassium 3.9 mmol/L (3.4-4.6); Total Protein 6.1 gm/dL (6.2-8.2)
[2017-10-23] MEDS: cefTRIAXone SODIUM 1,000 MG in DEXTROSE 5 % IN WATER 50 ML IV SCH ×2 (09:34)
[2017-10-23] MEDS: risperiDONE 0.25 MG TABLET PO SCH ×2 (09:36→20:38)
[2017-10-23] MEDS: SENNOSIDES/DOCUSATE SODIUM 1 TAB TABLET PO SCH ×2 (09:36→20:39)
[2017-10-23] MEDS: LISINOPRIL 5 MG TABLET PO SCH (09:36)
[2017-10-23] MEDS: AMIODARONE HCL 200 MG TABLET PO SCH (09:36)
[2017-10-23] MEDS: WARFARIN SODIUM 5 MG TABLET PO SCH (17:31)
[2017-10-23] MEDS: ENOXAPARIN SODIUM 40 MG/0.4 ML SYRG SC SCH (17:31)
[2017-10-23] MEDS: METOPROLOL SUCCINATE 50 MG TABLET.SA PO SCH (20:40)
--- NOTE | 2017-10-23 22:36 | PN ---
Subjective - Date and Time Seen Date: 10/23/17 Time: 08:00 Subjective Narrative: Alert and oriented x 1 this morning. Believes he is in [place] but knows who he is. Unclear if he recognizes his . Has no concerns. Patient remains restless, but improved from yesterday. No fever, chills, n/v. Objective - Vitals Vitals: Last Vital Signs Temp 37.1 C 10/23/17 19:21 Pulse 115 H 10/23/17 21:01 Resp 22 H 10/23/17 21:01 BP 134/76 10/23/17 20:40 Pulse Ox 98 10/23/17 20:51 - Abnormal Lab Findings Abnormal Lab Findings: Abnormal Lab Results 10/23/17 10/23/17 10/23/17 Range/Units 05:54 08:33 08:33 RBC 4.63 L (4.7-6.0) M/mm3 RDW 14.5 H (11.5-14.0) % MPV 10.8 H (6.0-9.5) fl Neutrophils % 76.9 H (42-75.0) % Lymphocytes % 9.5 L (20-51) % Monocytes % 12.1 H (0.0-9) % Neutrophils # 6.3 H (1.3-6.0) K/mm3 Lymphocytes # 0.8 L (1.5-3.5) k/mm3 PT 13.0 H (9.0-11.0) Seconds INR (Anticoag Therapy) 1.30 H (0.90-1.10) INR Sodium 146 H (132-142) mmol/L Plasma Sodium 146 H (130-142) mmol/L Chloride 110 H (97-106) mmol/L Anion Gap 15.8 H (6.8-13.8) mmol/L BUN 25 H (6-23) mg/dL Total Protein 6.1 L (6.2-8.2) gm/dL Albumin 2.9 L (3.4-5.0) gm/dl - Exam Constitutional: Present: Alert Respiratory: Present: lungs clear, normal breath sounds Cardiovascular/Chest: Present: tachycardia, irregularly irregular Abdomen: Present: Normal bowel sounds, soft, nontender, nondistended Skin Exam: Present: normal color, warm/dry, no cyanosis Assessment/Plan Plan Narrative: Patient is currently not safe for home discharge. Delirium still present and unable to go home. Will look into senior care placement. I do believe that with time his delirium will improve with a stable environment and control of medical problems. Will plan to discharge to senior care with hopes of eventually returning to home. - Problems/Diagnosis (1) Delirium Problem: Acute Narrative: Improved. He is not aggressive, but is restless. He knows his name, but not location. This is an improvement from days prior. I continue to suspect that this is from his recent illness and environment change. I expect it to improve. Continue respirdal scheduled. Haldol prn. (2) CHF (congestive heart failure) Problem: Suspected Qualifiers: Congestive heart failure type: systolic Congestive heart failure chronicity : acute Qualified Code(s): I50.21 - Acute systolic (congestive) heart failure Narrative: Low EF. On Metoprolol, lisinopril. Fluid status stable. (3) New onset atrial fibrillation Problem: Acute Narrative: Rate elevated with restlessness. Continue Amiodarone, metoprolol, and coumadin. (4) Acute kidney injury Problem: Resolved (5) Pneumonia Problem: Resolved Qualifiers: Pneumonia type: due to unspecified organism Laterality: bilateral Lung location: lower lobe of lung Qualified Code(s): J18.9 - Pneumonia, unspecified organism (6) Dementia Problem: Chronic Qualifiers: Dementia type: Alzheimer's disease Alzheimer's disease onset: late-onset Dementia behavioral disturbance: without behavioral disturbance Qualified Code (s): G30.1 - Alzheimer's disease with late onset; F02.80 - Dementia in other diseases classified elsewhere without behavioral disturbance; F02.80 - Dementia in other diseases classified elsewhere without behavioral disturbance; F02.80 - Dementia in other diseases classified elsewhere without behavioral disturbance
[2017-10-23] MEDS ORDERED: HALOPERIDOL LACTATE 5 MG/ML VIAL IM ONE (22:44)
[2017-10-23] MEDS ORDERED: HALOPERIDOL LACTATE 5 MG/ML VIAL ONE (22:54)
[2017-10-24] MEDS: HALOPERIDOL 1 MG TABLET PO PRN (04:55)
[2017-10-24 06:36] LABS: INR 1.59 INR (0.90-1.10)
[2017-10-24] MEDS: risperiDONE 0.25 MG TABLET PO SCH (10:12)
[2017-10-24] MEDS: cefTRIAXone SODIUM 1,000 MG in DEXTROSE 5 % IN WATER 50 ML IV SCH ×2 (10:12)
[2017-10-24] MEDS: AMIODARONE HCL 200 MG TABLET PO SCH ×2 (10:14→20:24)
[2017-10-24] MEDS: SENNOSIDES/DOCUSATE SODIUM 1 TAB TABLET PO SCH ×2 (10:15→20:24)
[2017-10-24] MEDS: LISINOPRIL 5 MG TABLET PO SCH (10:15)
[2017-10-24] MEDS ORDERED: METOPROLOL TARTRATE 50 MG TABLET PO ONE (11:00)
[2017-10-24] MEDS ORDERED: ZIPRASIDONE HCL 20 MG CAPSULE PO ONE (17:21)
[2017-10-24] MEDS: WARFARIN SODIUM 5 MG TABLET PO SCH (17:57)
[2017-10-24] MEDS: ENOXAPARIN SODIUM 40 MG/0.4 ML SYRG SC SCH (17:57)
[2017-10-24] MEDS: METOPROLOL SUCCINATE 100 MG TABLET.SA PO SCH (20:25)
--- NOTE | 2017-10-24 23:49 | PN ---
Subjective - Date and Time Seen Date: 10/24/17 Time: 16:50 Subjective Narrative: Patient remains delirious. Is sometimes oriented to self. Sometimes recognizes individuals. He is very restless. No fever, pain, shortness of breath. Heart rate continues to run high despite amiodarone and metoprolol, but more so when he gets restless. Objective - Vitals Vitals: Last Vital Signs Temp 37.2 C 10/24/17 22:29 Pulse 124 H 10/24/17 22:29 Resp 20 10/24/17 22:29 BP 128/100 10/24/17 22:29 Pulse Ox 99 10/24/17 22:29 - Abnormal Lab Findings Abnormal Lab Findings: Abnormal Lab Results 10/24/17 Range/Units 05:45 PT 16.0 H (9.0-11.0) Seconds INR (Anticoag Therapy) 1.59 H (0.90-1.10) INR - Exam Constitutional: Present: Somnolent, Other - Sleeping currently, but even in his sleep he is very restless Respiratory: Present: lungs clear, normal breath sounds Cardiovascular/Chest: Present: tachycardia, irregularly irregular Abdomen: Present: Normal bowel sounds, soft, nontender, nondistended Skin Exam: Present: normal color, warm/dry, no cyanosis Assessment/Plan Plan Narrative: Patient remains delirious. Suspect secondary to pneumonia and environmental change. He is too disoriented to go home. Clinically pneumonia is improving. Cultures negative. Remains in atrial fibrillation with RVR, moreso with agitation. Attempted geodon to see if this would help. It makes him sleep but he remains restless in his sleep and then when he awakens he continues to be delirious and agitated at times. Looking into [facility] discharge with dementia unit. Will continue to adjust metoprolol/amiodarone for improved heart rate control. Patient is not eating well due to behaviors. - Problems/Diagnosis (1) Delirium Problem: Acute (2) CHF (congestive heart failure) Problem: Suspected Qualifiers: Congestive heart failure type: systolic Congestive heart failure chronicity : acute Qualified Code(s): I50.21 - Acute systolic (congestive) heart failure (3) New onset atrial fibrillation Problem: Acute (4) Acute kidney injury Problem: Resolved (5) Pneumonia Problem: Resolved Qualifiers: Pneumonia type: due to unspecified organism Laterality: bilateral Lung location: lower lobe of lung Qualified Code(s): J18.9 - Pneumonia, unspecified organism (6) Dementia Problem: Chronic Qualifiers: Dementia type: Alzheimer's disease Alzheimer's disease onset: late-onset Dementia behavioral disturbance: without behavioral disturbance Qualified Code (s): G30.1 - Alzheimer's disease with late onset; F02.80 - Dementia in other diseases classified elsewhere without behavioral disturbance; F02.80 - Dementia in other diseases classified elsewhere without behavioral disturbance; F02.80 - Dementia in other diseases classified elsewhere without behavioral disturbance
[2017-10-25] MEDS: AMIODARONE HCL 200 MG TABLET PO SCH ×3 (03:01→20:31)
[2017-10-25] MEDS: SENNOSIDES/DOCUSATE SODIUM 1 TAB TABLET PO SCH ×3 (03:02→20:31)
[2017-10-25] MEDS: METOPROLOL SUCCINATE 100 MG TABLET.SA PO SCH ×2 (03:02→20:30)
[2017-10-25 06:11] LABS: Prothrombin Time (Patient) 26.7 Seconds (9.0-11.0)
[2017-10-25 06:13] LABS: INR 2.64 INR (0.90-1.10)
[2017-10-25] MEDS ORDERED: ZIPRASIDONE MESYLATE 20 MG VIAL IM ONE (08:30)
[2017-10-25] MEDS: LISINOPRIL 5 MG TABLET PO SCH (08:33)
[2017-10-25] MEDS ORDERED: HALOPERIDOL 1 MG TABLET PO SCH (10:00)
[2017-10-25] MEDS ORDERED: WARFARIN SODIUM 2 MG TABLET PO ONE (17:00)
[2017-10-25] MEDS: HALOPERIDOL 1 MG TABLET PO SCH ×2 (17:24→23:32)
--- NOTE | 2017-10-25 23:41 | PN ---
Subjective - Date and Time Seen Date: 10/25/17 Time: 16:45 Subjective Narrative: Patient somnolent and restless. Fidgets and restless in his sleep. Occasionally oriented to self. Recognizes family off and on. Heart rate still elevated most of the time. Objective - Vitals Vitals: Last Vital Signs Temp 37.2 C 10/25/17 19:41 Pulse 137 H 10/25/17 20:30 Resp 20 10/25/17 19:41 BP 120/69 10/25/17 20:30 Pulse Ox 94 10/25/17 19:41 - Abnormal Lab Findings Abnormal Lab Findings: Abnormal Lab Results 10/25/17 Range/Units 05:56 PT 26.7 H (9.0-11.0) Seconds INR (Anticoag Therapy) 2.64 H (0.90-1.10) INR - Exam Constitutional: Present: Somnolent. Absent: Alert, Oriented x3 Respiratory: Present: lungs clear, normal breath sounds Cardiovascular/Chest: Present: no murmur, tachycardia Abdomen: Present: Normal bowel sounds, soft, nontender, nondistended Skin Exam: Present: normal color, warm/dry, no cyanosis Assessment/Plan Plan Narrative: Delirium continues. Refractory to geodon, ativan, haldol, respiradol. Was hoping this would improve with staying in the same room as he had changed environments multiple times since arriving at the hospital and I suspected this was contributing, but he has been in the same room for several days and delirium is not improving. Pneumonia appears to be clinically better. No respiratory concerns. Labs improved. Continue to increase metoprolol and amiodarone for better control. More tachycardiac when restless and agitated. - Problems/Diagnosis (1) Delirium Problem: Acute (2) CHF (congestive heart failure) Problem: Suspected Qualifiers: Congestive heart failure type: systolic Congestive heart failure chronicity : acute Qualified Code(s): I50.21 - Acute systolic (congestive) heart failure (3) New onset atrial fibrillation Problem: Acute (4) Acute kidney injury Problem: Resolved (5) Pneumonia Problem: Resolved Qualifiers: Pneumonia type: due to unspecified organism Laterality: bilateral Lung location: lower lobe of lung Qualified Code(s): J18.9 - Pneumonia, unspecified organism (6) Dementia Problem: Chronic Qualifiers: Dementia type: Alzheimer's disease Alzheimer's disease onset: late-onset Dementia behavioral disturbance: without behavioral disturbance Qualified Code (s): G30.1 - Alzheimer's disease with late onset; F02.80 - Dementia in other diseases classified elsewhere without behavioral disturbance; F02.80 - Dementia in other diseases classified elsewhere without behavioral disturbance; F02.80 - Dementia in other diseases classified elsewhere without behavioral disturbance
[2017-10-26] MEDS: HALOPERIDOL 1 MG TABLET PO SCH ×4 (05:04→22:07)
[2017-10-26 06:15] LABS: Prothrombin Time (Patient) 53.4 Seconds (9.0-11.0)
[2017-10-26 06:20] LABS: INR 5.25 INR (0.90-1.10)
[2017-10-26] MEDS: AMIODARONE HCL 200 MG TABLET PO SCH ×2 (08:23→22:07)
[2017-10-26] MEDS: LISINOPRIL 5 MG TABLET PO SCH (08:24)
[2017-10-26] MEDS: SENNOSIDES/DOCUSATE SODIUM 1 TAB TABLET PO SCH ×2 (08:24→22:08)
--- NOTE | 2017-10-26 11:53 | PN ---
Subjective - Date and Time Seen Date: 10/26/17 Time: 11:52 Subjective Narrative: patient occassionally responds, oral intake very poor. continues to restless at night. Objective - Review of Systems Generalized/Overall Review: Reports: Weakness Respiratory: Reports: Cough, Shortness of Breath Cardiac: Denies: Chest Pain, Edema - Vitals Vitals: Vital Signs Temp 36.8 C 10/26/17 09:37 Pulse 125 H 10/26/17 09:37 Resp 24 H 10/26/17 09:37 BP 136/84 10/26/17 09:37 Pulse Ox 97 10/26/17 09:37 - Abnormal Lab Findings Abnormal Lab Findings: Abnormal Lab Results 10/26/17 Range/Units 05:35 PT 53.4 H (9.0-11.0) Seconds INR (Anticoag Therapy) 5.25 H* (0.90-1.10) INR - EKG/Xray Findings EKG: other - EKG strip - afib with RVR - Exam Constitutional: Present: Lethargic, Elderly, Thin and frail ENT Exam: Present: dry mucous membranes Neck: Present: normal inspection, trachea midline Respiratory: Present: decreased breath sounds, rales - b, rhonchi, wheezing - bilaterally in both lung fileds Cardiovascular/Chest: Present: systolic murmur, costrochronditis, irregularly irregular Abdomen: Present: Normal bowel sounds, soft, nontender, nondistended Extremity: Present: normal inspection, no pedal edema Skin Exam: Present: warm/dry, pallor Appearance: Present: impaired insight, impaired recent memory, impaired remote memory Assessment/Plan Plan Narrative: 1. A. FIB WITH RVR: Increase metoprolol ER from 100 mg at bedtime to 50 mg in a.m. and 100 mg at bedtime. Also on amiodarone 200 mg twice a day. Start Lanoxin 0.25 mg IV every 8 hours 3 doses. 2. CARDIOMYOPATHY WITH EF < 15% : Patient not being diuresed as oral intake is very poor and and serum in a class and serum Cl- have been high on 10/23/17. GFR WNL. Patient on Hal lisinopril 2.5 mg twice a day. Repeat labs in AM. 3. DEMENTIA WITH CONFUSION/AGITATION: Patient receiving haloperidol 0.5 mg every 6 hours as needed. 4. DVT PROPHYLAXIS: On warfarin for A. fib. PT prolonged today at 5.25. Warfarin on hold;is being managed by pharmacy. CODE STATUS- DNR. - Problems/Diagnosis (1) New onset atrial fibrillation Problem: Acute (2) HFrEF (heart failure with reduced ejection fraction) Problem: Acute (3) Delirium Problem: Acute (4) Delirium Problem: Acute (5) Dehydration Problem: Acute
[2017-10-26] MEDS ORDERED: METOPROLOL SUCCINATE 50 MG TABLET.SA PO ONE (12:00)
[2017-10-26] MEDS ORDERED: WARFARIN SODIUM 5 MG TABLET PO SCH (17:00)
[2017-10-26] MEDS ORDERED: LISINOPRIL 2.5 MG TABLET PO SCH (21:00)
[2017-10-26] MEDS: DIGOXIN 0.25 MG/ML AMPUL IV SCH (21:26)
[2017-10-26] MEDS: METOPROLOL SUCCINATE 100 MG TABLET.SA PO SCH (22:09)
[2017-10-27] MEDS: DIGOXIN 0.25 MG/ML AMPUL IV SCH (03:37)
[2017-10-27] MEDS: HALOPERIDOL 1 MG TABLET PO SCH ×2 (04:07→10:11)
[2017-10-27 05:34] LABS: Hematocrit 47.2 % (42.0-52.0); Hemoglobin 15.1 gm/dL (13.5-18.0); Mean Cell Volume 92.9 fl (78-100); Mean Corpuscular Hemoglobin 29.7 pg (27-31); Mean Platelet Volume 11.2 fl (6.0-9.5); Neutrophil % 90.3 % (42-75.0); Platelet Count 172 K/mm3 (150-450); Red Blood Count 5.08 M/mm3 (4.7-6.0); Red Cell Distribution Width 14.6 % (11.5-14.0); White Blood Count 16.6 K/mm3 (4.0-10.5)
[2017-10-27 05:38] LABS: Prothrombin Time (Patient) 56.5 Seconds (9.0-11.0)
[2017-10-27 05:43] LABS: Albumin * 2.6 gm/dl (3.4-5.0); Anion Gap 14.8 mmol/L (6.8-13.8); BUN/Creatinine Ratio 23.4 (9.0-21.6); Bilirubin, Total 1.5 mg/dL (0.0-1.1); Ca. Corrected For Albumin 9.9 mg/dL (8.4-10.2); Calcium * 9.1 mg/dL (7.9-10.9); Carbon Dioxide 25.6 mmol/L (24-32.6); Potassium 4.4 mmol/L (3.4-4.6)
[2017-10-27 05:53] LABS: INR 5.55 INR (0.90-1.10)
[2017-10-27] MEDS ORDERED: BISACODYL 10 MG SUPP.RECT RC ONE (06:29)
[2017-10-27 07:40] VITALS: BP 142/86
[2017-10-27] MEDS ORDERED: LORazepam 2 MG/ML DISP.SYRIN IV PRN ×2 (08:04→09:49)
[2017-10-27] MEDS ORDERED: ATROPINE SULFATE 150 DROP BTL SL PRN (08:04)
[2017-10-27] MEDS: MORPHINE SULFATE 2 MG/ML DISP.SYRIN IV PRN ×4 (08:37→09:44)
[2017-10-27] MEDS ORDERED: METOPROLOL SUCCINATE 50 MG TABLET.SA PO SCH (09:00)
[2017-10-27] MEDS: MORPHINE SULFATE 10 MG/ML SYRG IV PRN ×3 (10:11→14:22)
[2017-10-27] MEDS ORDERED: BISACODYL 10 MG SUPP.RECT RC PRN (14:11)
[2017-10-27] MEDS: POLYVINYL ALCOHOL 150 DROP BTL EACHEYE SCH ×2 (14:30→15:15)
--- NOTE | 2017-10-27 15:03 | PN ---
Subjective - Date and Time Seen Date: 10/27/17 Time: 14:52 Subjective Narrative: Patient placed in comfort measures. All medications discontinued. Currently on morphine sulfate 10 mg IV every 2 hours, Ativan 2 mg IV every 2 hours, atropine eyedrops if needed. O2 if needed. Patient will have a bladder scan and the catheter will be inserted if volume is greater than 500 mL. Discussed in detail with and son regarding comfort measures. Labs indicate severe dehydration with serum Na+ 153, Cl- 117, BUN/CR 37/1.58. Objective - Review of Systems Generalized/Overall Review: Reports: No Symptoms Reported - Vitals Vitals: Vital Signs Temp 36.6 C 10/27/17 07:53 Pulse 125 H 10/27/17 07:53 Resp 37 H 10/27/17 07:53 BP 142/86 10/27/17 07:53 Pulse Ox 96 10/27/17 07:53 - Abnormal Lab Findings Abnormal Lab Findings: Laboratory Tests 10/27/17 05:15 WBC 16.6 H Hgb 15.1 Hct 47.2 Plt Count 172 10/27/17 05:15 PT 56.5 H INR (Anticoag Therapy) 5.55 H* 10/27/17 05:15 Plasma Sodium 153 H Potassium 4.4 Chloride 117 H Carbon Dioxide 25.6 BUN 37 H Creatinine 1.58 H D Est GFR (Non-Af Amer) 44 L D Random Glucose 111 H Calcium Adj for Albumin 9.9 Total Bilirubin 1.5 H AST 66 H ALT 48 Alkaline Phosphatase 134 Total Protein 6.0 L Albumin 2.6 L - Exam Constitutional: Present: Lethargic, Elderly, Thin and frail ENT Exam: Present: dry mucous membranes Neck: Present: normal inspection, trachea midline Cardiovascular/Chest: Present: tachycardia - with HR between 125-130/min, irregularly irregular Abdomen: Present: soft, nontender, hypoactive Skin Exam: Present: warm/dry, pallor Assessment/Plan Plan Narrative: 1. COMFORT MEASURES: Patient placed in comfort measures; all meds d/oziel except for lorazepam 2 mg IV every 2 hours, morphine sulfate 10 mg IV every 2 hours atropine eyedrops. Patient will be repositioned every 2 hours, oral care Q2H, etc. - Problems/Diagnosis (1) New onset atrial fibrillation Problem: Acute (2) HFrEF (heart failure with reduced ejection fraction) Problem: Acute (3) Dehydration Problem: Acute (4) Comfort measures only status Problem: Acute
[2017-10-27] MEDS ORDERED: MORPHINE SULFATE 10 MG/ML SYRG IV ONE (15:06)
[2017-10-27] MEDS ORDERED: WARFARIN SODIUM 1 TAB TAB PO SCH ×2 (17:00)
[2017-10-27] MEDS ORDERED: HYDROPHILIC OINTMENT 454 APPL JAR TP SCH (21:00)
--- NOTE | 2017-11-11 11:18 | DS ---
Discharge Summary - Provider Primary Care Provider: Luis Daniel Jackson Admitting Clinician: Luis Daniel Jackson Attending Physician on Admission: Luis Daniel Jackson Consult: Kirt Baird Pronouncing Clinician: Mariano Mayers - Date and Time Date of : 10/27/17 Time of : 15:24 - Diagnosis/Cause of (1) New onset atrial fibrillation Problems: Acute (2) HFrEF (heart failure with reduced ejection fraction) Problems: Acute (3) Dehydration Problems: Acute (4) Comfort measures only status Problems: Acute - Summary Details (narrative): DATE OF ADMISSION: 10/18/17. DATE OF EXPIRATION: 10/27/17. DIAGNOSTICS: ECHOCARDIOGRAM. 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 He was found to have new onset A. fib with a rate of 110-120/m and CHF. He underwent an echocardiogram which showed dilated cardiomyopathy and severe global left ventricular dysfunction with EF of 15%. Dr. Baird was consulted for the same. His medications were adjusted accordingly however patient became gradually more combative and confused requiring haloperidol. Patient was started on warfarin as his CHUCK score was elevated. Patient did not respond to the medication changes well. Patient continued to be in A. fib with RVR at the rate of 130-140 /min despite of being on amiodarone, metoprolol etc. Patient became markedly dehydrated as evidenced by increased sodium, chloride, BUN/creatinine due to decreased oral intake. Discussed with family in detail that his prognosis was poor due to the above irreversible problems. The patient was placed on comfort measures and most of his medications were discontinued. He was placed on oxygen, morphine sulfate and Ativan as needed. He was pronounced at approximately 1524 hrs. on and the body was released to the family. Procedures Performed: none - Additional Data Confirmation of as documented by pronouncing clinician: no pulse, no respirations Family: at bedside Attending/PCP notified: Yes - Dr. Mayers Was code activated: No Autopsy requested: No Surveyor Mine notified: No Organ Bank notified: Yes Hospice patient: No
== END 2017-10-27 15:24 | disposition expired | DRG 292 ==
LOC: ER 12:21 → UNDOADMOB 15:27 → MS 15:27 → OBSVTOIN 10-19 08:56 → SCU 10-20 09:20 → MS 10-21 17:34
PROVIDERS: ADMIT Family Medicine; ATTEND Family Medicine
PROC: 4A033R1 Measurement of Arterial Saturation, Peripheral, Percutaneous Approach (ICD-10-PCS; principal; 2017-10-18)
PROC: B246ZZZ Ultrasonography of Right and Left Heart (ICD-10-PCS; 2017-10-21)
DX: I50.21 Acute systolic (congestive) heart failure (principal); N17.9 Acute kidney failure, unspecified; F02.81 Dementia in other diseases classified elsewhere, unspecified severity, with behavioral disturbance; R41.0 Disorientation, unspecified; I48.91 Unspecified atrial fibrillation; E86.0 Dehydration; G30.1 Alzheimer's disease with late onset; I10 Essential (primary) hypertension; K21.9 Gastro-esophageal reflux disease without esophagitis; Z79.82 Long term (current) use of aspirin; Z23 Encounter for immunization
CPT/HCPCS: 36415; 36600; 70450; 71045; 80048; 80053; 81001; 82140; 82803; 83605; 83735; 83880; 84443; 84484; 85025; 85610; 85730; 87040; 87086; 87400; 90686; 93005; 93306; 94640; 96365; 96375; 97116; 97162; 97165; 97530; 99285; G0008; G0378; G8978; G8979; G8980; P9612